=== PATIENT | female | born 1995 | race Caucasian/White ===

== ENCOUNTER 2017-12-27 17:55 | Outpatient (REF) | payer OTHER, SELFPAY ==
[2017-12-29 15:38] LABS: Chlamydia Result Negative; GC Result Negative; Specimen Description URINE
== END 2017-12-27 18:15 ==
LOC: LBN 17:55
PROVIDERS: PCP Pediatrics; Visit Provider Nurse Practitioner Family
DX: R50.9 Fever, unspecified (principal); R39.11 Hesitancy of micturition
CPT/HCPCS: 87491; 87591

== ENCOUNTER 2018-02-02 12:05 | Outpatient (REF) | payer OTHER, SELFPAY ==
[2018-02-05 15:15] LABS: Chlamydia Result Negative; GC Result Negative; Specimen Description CERVIX
== END 2018-02-02 12:25 ==
LOC: LBN 12:05
PROVIDERS: PCP Pediatrics; Visit Provider Nurse Practitioner Women's Health
DX: R10.2 Pelvic and perineal pain (principal); Z11.3 Encounter for screening for infections with a predominantly sexual mode of transmission
CPT/HCPCS: 87491; 87591

== ENCOUNTER 2018-03-26 19:32 | Emergency (ER) | payer OTHER, SELFPAY ==
[2018-03-26 19:36] VITALS: BP 170/80; PULSE 103; RESP 14; TEMP 36.5; O2SAT 100
[2018-03-26 20:01] LABS: Bilirubin Negative (Negative); Blood Negative (Negative); Clarity Clear; Glucose Negative (Negative); Ketones Negative (Negative); Leukocyte Esterase Negative (Negative); Nitrite Negative (Negative); Specific Gravity 1.025 (1.005-1.025); Urobilinogen 0.2 EU/dL (Up TO 0.2)
--- NOTE | 2018-03-26 20:28 | DI.CT_ITS ---
SYMPTOMS/DIAGNOSIS: UMBILICAL PAIN, ? APPENDICITIS CT SCAN OF THE ABDOMEN AND PELVIS: CT scan of the abdomen and pelvis was performed following the uneventful administration of intravenous contrast material. No priors. The lung bases are clear. The liver, spleen, pancreas, gallbladder, bile ducts and adrenal glands are unremarkable. The portal and superior mesenteric veins are patent. The kidneys, ureters and bladder are unremarkable. The reproductive organs are unremarkable. The bowel has a normal appearance. There is a normal appendix present. The abdominal aorta is of normal caliber. No significant abdominal or pelvic adenopathy, ascites or pneumoperitoneum is seen. No acute abnormality is seen in the bones. IMPRESSION: No acute abnormality. No evidence of an acute appendicitis.
[2018-03-26] MEDS: Normal Saline 1,000 ML 1000 ML IV (20:51)
[2018-03-26 20:55] LABS: Abs Immature Grans 0.03 k/cumm (0.0-0.09); Absolute Basophil Count 0.02 k/cumm (0.0-0.2); Absolute Eosinophil Count 0.02 k/cumm (0.0-0.7); Absolute Lymphocyte Count 3.35 k/cumm (1.2-3.4); Absolute Monocyte Count 0.63 k/cumm (0.11-0.7); Absolute Neutrophil Count 6.66 k/cumm (1.2-6.7); Basophils % 0.2; Eosinophils % 0.2; HCT 38.8 % (36.0-46.0); HGB 13.1 g/dL (12.0-15.5); Immature Grans % 0.3; Lymphocytes % 31.3; Mean Corp. HGB Concentration 33.8 g/dL (32.0-36.0); Mean Corpuscular Hemoglobin 29.2 pg (27.0-33.0); Mean Corpuscular Volume 86.6 fL (80-95); Mean Platelet Volume 9.9 fL (8.0-11.0); Monocytes % 5.9; Neutrophils % 62.1; Platelet Count 442 x1000/uL (130-400); RBC 4.48 m/cumm (4.00-5.20); RBC Distribution Width 12.6 % (11.7-14.6); White Blood Cell Count 10.71 k/cumm (4.4-10.8)
[2018-03-26] MEDS: Omnipaque 350 MG/ML 100 ML BTL IJ (21:10)
[2018-03-26 21:15] LABS: ALT 19 U/L (12-78); AST 11 U/L (15-37); Albumin 3.9 g/dL (3.4-5.0); Alkaline Phosphatase 74 U/L (46-116); Anion Gap 10.8 mmol/L (3-11); BUN 11 mg/dL (7-18); Bilirubin, Total 0.2 mg/dL (0.2-1.0); CO2 27.2 mmol/L (21.0-32.0); CREATININE 0.97 mg/dL (0.55-1.02); Calcium 9.4 mg/dL (8.5-10.1); Chloride 100 mmol/L (98-107); Glucose 120 mg/dL (70-100); Potassium 3.4 mmol/L (3.5-5.1); Sodium 138 mmol/L (136-145); Total Protein 8.2 g/dL (6.4-8.2)
--- NOTE | 2018-03-26 21:45 | DI.VRAD_ITS ---
EXAM: CT Abdomen and Pelvis With Contrast EXAM DATE/TIME: 03/26/2018 8:30 PM CLINICAL HISTORY: 22 years old, female; Pain; Abdominal pain; Localized; Lower; Patient HX: Lower abd and back pain for 1 week, blood in urine last week TECHNIQUE: Axial computed tomography images of the abdomen and pelvis with intravenous contrast. All CT scans at this facility use at least one of these dose optimization techniques: automated exposure control; mA and/or kV adjustment per patient size (includes targeted exams where dose is matched to clinical indication); or iterative reconstruction. Coronal and sagittal reformatted images were created and reviewed. CONTRAST: 87 ml of Omnipaque 350 administered intravenously. COMPARISON: US ABDOMEN PELVIS ULTRASOUND 12/18/2013 2:33 PM FINDINGS: Lower thorax: No acute findings. ABDOMEN: Liver: Normal. No mass. Gallbladder and bile ducts: Normal. No calcified stones. No ductal dilation. Pancreas: Normal. No ductal dilation. Spleen: Normal. No splenomegaly. Adrenals: Normal. No mass. Kidneys and ureters: Normal. No hydronephrosis. Stomach and bowel: Normal. No obstruction. No mucosal thickening. Appendix: Normal appendix. PELVIS: Bladder: Unremarkable as visualized. Reproductive: Unremarkable as visualized. ABDOMEN and PELVIS: Intraperitoneal space: Normal. No free air. No significant fluid collection. Bones/joints: No acute fracture. No dislocation. Soft tissues: Unremarkable. Vasculature: Normal. No abdominal aortic aneurysm. Lymph nodes: Normal. No enlarged lymph nodes. IMPRESSION: No acute findings. Dictated and Authenticated by: Ayaz Hare MD. Ordering:ROYER Morales MD
--- NOTE | 2018-03-26 22:17 | ED.GENADUL_ITS ---
Discharge Plan Disposition Patient Disposition: HOME Condition: Good Discharge Details Chief Complaint: Abd Prob Clinical Impression: Abdominal pain Reason For Visit: abd pain Primary Care Provider: Hua Gomez ED Provider: Andrew Christianson Home Meds and New Rx's Prescriptions: No Action Xulane 1 EACH patch weekly 1 ea Transdermal weekly Qty: 9 RF: 3 Discharge Instructions Instructions: Abdominal Pain (ED) Additional Instructions: Please take 600 mg of ibuprofen every 6 hours and up to 1000 mg of Tylenol every 6 hours for control of your pain. Please drink 10-12 cups of water per day for good hydration. If you notice any worsening of your symptoms, or any new symptoms such as vomiting, diarrhea, fever, chills, shortness of breath, chest pain, numbness, weakness, or fainting , please return immediately to the emergency department for reevaluation. Please follow up with your primary care provider as soon as possible for reassessment and reevaluation. As always, it was a pleasure participating in your medical care today. Referrals: Hua Gomez MD [Primary Care Provider] - Discharge Data Discharge Date/Time-TO BE ENTERED AT DEPARTURE: 03/26/18 22:24 Medical Decision Making This is a 22-year-old female with no significant past medical history who presents with complaint of mild infraumbilical abdominal pain last week, with associated mild bilateral flank pain. No apparent aggravating or relieving symptoms. Pain is described as pinching. Initial clinical history was concerning for potential urinary tract infection, less likely appendicitis. Associated benign abdominal exam. Laboratory workup demonstrated no significant abnormalities, additionally patient's urinalysis was negative for any signs of infectious etiology whatsoever. No evidence of UTI or kidney stone on the urine. Patient's signs and symptoms are clinically inconsistent with ovarian torsion, or pelvic pathology secondary to both her exam and clinical history. Although the diagnosis of appendicitis is less likely, with a negative UA and her abdominal symptoms is on the differential. I did discuss this with the patient, I discussed the risks and benefits of potential radiologic CT imaging. Patient is requesting CT imaging to rule out appendicitis. CT results did return demonstrate no acute process or signs of appendicitis. With a benign workup, pain that is very minimal at best, no signs of an acute abdomen and no clinical evidence of pelvic pathology on exam, I do feel that she is safe for discharge home with close follow-up. I discussed the importance of close follow-up, as well as red flags for which to return the patient understands, as well as the importance of Tylenol and Motrin for pain control and good hydration. I do feel her symptoms may be secondary to a mild musculoskeletal component, or subclinical mesenteric adenitis not found on CT scan. I have extensively reviewed the treatment plan and discharge instructions with the patient and their family. I have addressed all patient concerns at this time. The patient and family was made aware of what symptoms to monitor for that would warrant a return to the emergency department. Discussed the plan with the patient and family, they demonstrate verbal understanding and agreement with our assessment and plan at this time. FINDINGS: Lower thorax: No acute findings. ABDOMEN: Liver: Normal. No mass. Gallbladder and bile ducts: Normal. No calcified stones. No ductal dilation. Pancreas: Normal. No ductal dilation. Spleen: Normal. No splenomegaly. Adrenals: Normal. No mass. Kidneys and ureters: Normal. No hydronephrosis. Stomach and bowel: Normal. No obstruction. No mucosal thickening. Appendix: Normal appendix. PELVIS: Bladder: Unremarkable as visualized. Reproductive: Unremarkable as visualized. ABDOMEN and PELVIS: Intraperitoneal space: Normal. No free air. No significant fluid collection. Bones/joints: No acute fracture. No dislocation. Soft tissues: Unremarkable. Vasculature: Normal. No abdominal aortic aneurysm. Lymph nodes: Normal. No enlarged lymph nodes. IMPRESSION: No acute findings. Dictated and Authenticated by: Ayaz Hare MD. HPI General Date/Time Provider Initiated Documentation: 03/26/18 19:45 . HPI Narrative: This is a 22-year-old female who presents for evaluation of lower back and abdominal pain. Patient states that for the last week she has had very mild umbilical pain, in conjunction with mild bilateral flank pain. She describes it as pinching sensation it is worse with movement, improved by nothing. She has been eating, drinking well with no associated vomiting or diarrhea. Symptoms are not made worse with food. She does have some mild increase in urinary frequency but denies any dysuria, hematochezia, melena, or acholic stool. She does admit to seeing a very small amount of blood in her urine 4-5 days ago but nothing since then. She denies any vaginal discharge, pelvic pain, history of STDs, or dyspareunia. She has no additional complaints or modifying factors at this time. She denies any systemic symptoms of fever or chills. She denies any surgeries. She denies any IV illicit drug use, or pertinent family history. She denies any history of kidney stones. Related Data Home Medications Medication Instructions Recorded Confirmed norelgestromin-ethin.estradiol 1 ea TRANSDERMAL weekly #9 patch 08/01/17 03/26/18 [Xulane Patch] Previous Rx's Medication Instructions Recorded norelgestromin-ethin.estradiol 1 ea TRANSDERMAL weekly #9 patch 08/01/17 [Xulane Patch] Allergies Allergy/AdvReac Type Severity Reaction Status Date / Time amoxicillin Allergy Intermediate RASH Unverified 03/26/18 19:40 Penicillins Allergy Intermediate RASH Unverified 03/26/18 19:40 General Stated Complaint: Abd Prob CHUCK: 3 Review of Systems Review of Systems All systems reviewed & are unremarkable except as noted in HPI and below PFSH Social History Smoking/Tobacco Use Status: Never Exam Narrative Exam Narrative: 1.Const: Well-nourished, Well-developed, appearing stated age 2.Eyes: PERRL, no conjunctival injection, and symmetrical lids. 3.ENT: Atraumatic external nose and ears. Moist MM. Neck: Symmetric, trachea midline, No thyromegaly. 4.CVS: +S1/S2, No murmurs or gallops. Peripheral pulses 2+ and equal in all extremities. Brisk capillary refill in all extremities. 5.RESP: Unlabored respiratory effort. Clear to auscultation bilaterally. No wheezes rales or rhonchi 6.GI: Soft, Nontender/Nondistended, No hepatosplenomegaly. No guarding or rebound. Minimal subjective tenderness in the infraumbilical region. No pain a t McBurney's point, negative Rovsing sign, negative obturator and psoas sign. Minimal right and left CVA tenderness with percussion. No signs of an acute surgical abdomen. 7.MSK: Normocephalic/Atraumatic, Extremities w/o deformity or ttp No cyanosis or clubbing, Normal movement of all extremities 8.Skin: Warm, Dry. No rashes or lesions. 9.Neuro: preload supervisor II-XII grossly intact. Sensation grossly intact, no focal neurologic deficits. 10.Psych: (AAO) x3. Appropriate mood and affect Course Vital Signs Temperature 36.5 C 03/26/18 19:36 Pulse 103 H 03/26/18 19:36 Respiratory Rate 14 03/26/18 19:36 Blood Pressure 170/80 H 03/26/18 19:36 Pulse Oximetry 100 03/26/18 19:36 Temperature 36.5 C 03/26/18 19:36 Temperature Source Temporal Artery Scan 03/26/18 19:36 Pulse 103 H 03/26/18 19:36 Respiratory Rate 14 03/26/18 19:36 Respiratory Effort 03/26/18 19:39 Blood Pressure 170/80 H 03/26/18 19:36 Blood Pressure Position Sitting 03/26/18 19:36 Pulse Oximetry 100 03/26/18 19:36 Oxygen Delivery Method Room Air 03/26/18 19:36 Oxygen Flow Rate 0 03/26/18 19:36 Lab/Test Results Lab/Test Results: Laboratory Tests Range/Units 03/26/18 03/26/18 03/26/18 19:45 19:45 19:45 WBC (4.4-10.8) k/cumm 10.71 RBC (4.00-5.20) m/cumm 4.48 Hgb (12.0-15.5) g/dL 13.1 Hct (36.0-46.0) % 38.8 MCV (80-95) fL 86.6 MCH (27.0-33.0) pg 29.2 MCHC (32.0-36.0) g/dL 33.8 RDW (11.7-14.6) % 12.6 Plt Count (130-400) x1000/uL 442 H MPV (8.0-11.0) fL 9.9 Immature Gran % 0.3 Neutrophils % 62.1 Lymphocytes % 31.3 Monocytes % 5.9 Eosinophils % 0.2 Basophils % 0.2 Absolute Neutrophils (1.2-6.7) k/cumm 6.66 Absolute Lymphocytes (1.2-3.4) k/cumm 3.35 Absolute Monocytes (0.11-0.7) k/cumm 0.63 Absolute Eosinophils (0.0-0.7) k/cumm 0.02 Absolute Basophils (0.0-0.2) k/cumm 0.02 Sodium (136-145) mmol/L 138 Potassium (3.5-5.1) mmol/L 3.4 L Chloride (98-107) mmol/L 100 Carbon Dioxide (21.0-32.0) mmol/L 27.2 Anion Gap (3-11) mmol/L 10.8 BUN (7-18) mg/dL 11 Creatinine (0.55-1.02) mg/dL 0.97 Estimated GFR/1.73 m2 (mL/min/1.73m2) >= 60.00 Glucose (70-100) mg/dL 120 H Calcium (8.5-10.1) mg/dL 9.4 Total Bilirubin (0.2-1.0) mg/dL 0.2 AST (15-37) U/L 11 L ALT (12-78) U/L 19 Alkaline Phosphatase (46-116) U/L 74 Total Protein (6.4-8.2) g/dL 8.2 Albumin (3.4-5.0) g/dL 3.9 Urine Color (Yellow) Yellow Urine Clarity Clear Urine pH (5-8) 7.0 Ur Specific [place] (1.005-1.025) 1.025 Urine Protein (Negative) mg/dL Negative Urine Ketones (Negative) mg/dL Negative Urine Blood (Negative) Negative Urine Nitrite (Negative) Negative Urine Bilirubin (Negative) Negative Urine Urobilinogen (Up TO 0.2) EU/dL 0.2 Ur Leukocyte Esterase (Negative) Negative Urine Glucose (Negative) mg/dL Negative POC- Test(urine) Negative
[2018-03-26 22:21] VITALS: BP 128/74; PULSE 91; RESP 14; TEMP 36.5; O2SAT 99
== END 2018-03-26 22:24 | disposition home or self-care (01) ==
PROVIDERS: Emergency Provider Student in an Organized Health Care Education/Training Program; PCP Pediatrics
DX: R10.9 Unspecified abdominal pain (principal)
CPT/HCPCS: 36415; 80053; 81025; 96360; 99285; 74177; 81003; 85025; 99284; J3490

== ENCOUNTER 2018-05-14 12:21 | Emergency (ER) | payer OTHER, SELFPAY ==
--- NOTE | 2018-05-14 12:26 | W.ED.GENAD ---
Discharge Plan Disposition Patient Disposition: HOME Condition: Stable Discharge Details Chief Complaint: EarProblem Clinical Impression: Left ear pain, Fluid level behind tympanic membrane of left ear Primary Care Provider: Hua Gomez ED Provider: Kary Olson Home Meds and New Rx's Prescriptions: New methylprednisolone [Medrol (Preet)] 4 mg tablets,dose pack See Rx Instructions .ROUTE .COMPLEX Qty: 21 RF: 0 azithromycin [Zithromax Z-Preet] 250 mg tablet See Rx Instructions .ROUTE .COMPLEX Qty: 6 RF: 0 Continued Xulane 1 EACH patch weekly 1 ea Transdermal weekly Qty: 9 RF: 3 Discharge Instructions Instructions: Otitis Media (ED), Earache (ED) Additional Instructions: You were given instructions for otitis media which is an ear infection. This may be viral or bacterial. You are noted to have some fluid in your left ear but this may not be an ear infection at this time. Take the steroids as directed until finished. If you have no relief or worsening of symptoms in the next 2 days, start the antibiotics for a possible ear infection. Follow-up with your primary care doctor in 1 week for reevaluation. Return immediately to the emergency department any worsening or new concerning symptoms. Discharge Data Discharge Date/Time-TO BE ENTERED AT DEPARTURE: 05/14/18 12:58 Discharge Physician: Kary Olson Medical Decision Making 22 yo F w/ L ear pain and decreased hearing x 2 days. No cerumen impaction. Vitals within normal limits. Yellowish fluid noted behind L TM. R TM appears normal to inspection. Remainder of ENT exam within normal limits. Lungs CTA. No meningeal signs. Pt appears nontoxic. test negative. Will send home with a script for steroids to help with ear inflammation/fluid accumulation. Will also send home with a script for antibiotics if symptoms do not improve or worsen as may initially be viral but progress to bacterial infection. Instructed to f/u with pcp in 1 week re-evaluation and return to the ER if worse. HPI General Mode of arrival: ambulatory. Date/Time Provider Initiated Documentation: 05/14/18 12:24. Limitations to Documentation: no limitations. Information obtained by: patient. HPI Narrative: Pt is a 22yo F who presents to the ED w/ a c/o decreased hearing and pain in her left ear for the past 2 days. She admits to some headache and neck pain surrounding L ear but not diffuse neck pain or headache. She denies known fever, rhinorrhea, cough or drainage from ear. Related Data Home Medications Medication Instructions Recorded Confirmed Xulane 1 ea TRANSDERMAL weekly #9 patch 08/01/17 05/14/18 azithromycin [Zithromax Z-Preet] See Rx Instructions .ROUTE 05/14/18 .COMPLEX #6 tab methylprednisolone [Medrol (Preet)] See Rx Instructions .ROUTE 05/14/18 .COMPLEX #21 dose pk Previous Rx's Medication Instructions Recorded Xulane 1 ea TRANSDERMAL weekly #9 patch 08/01/17 azithromycin [Zithromax Z-Preet] See Rx Instructions .ROUTE 05/14/18 .COMPLEX #6 tab methylprednisolone [Medrol (Preet)] See Rx Instructions .ROUTE 05/14/18 .COMPLEX #21 dose pk Allergies Allergy/AdvReac Type Severity Reaction Status Date / Time amoxicillin Allergy Intermediate RASH Unverified 05/14/18 12:30 Penicillins Allergy Intermediate RASH Unverified 05/14/18 12:30 General CHUCK: 3 Review of Systems Review of Systems All systems reviewed & are unremarkable except as noted in HPI and below Constitutional Reports as per HPI, Denies chills and Denies fever(s) Eyes Denies blurry vision ENT Denies dizziness, Denies ear discharge, Reports otalgia, Reports hearing loss, Denies nasal congestion, Denies nasal discharge, Denies sore throat and Denies throat swelling Cardiovascular Denies chest pain and Denies dyspnea Respiratory Denies cough and Denies dyspnea Gastrointestinal Denies abdominal pain, Denies diarrhea and Denies vomiting Genitourinary Denies hematuria and Denies dysuria Musculoskeletal Denies back pain and Denies numbness Integumentary/Breasts Denies lesions and Denies rash Neurologic Denies dizziness, Denies focal weakness and Denies numbness Allergic/Immunologic Denies throat swelling [facility] Medical History No significant past medical history (Acute) Surgical History No significant past surgical history (Acute) Family History Mother No problems noted. Father No problems noted. Social History Smoking and Tabacco status: Never alcohol intake: never substance use type: does not use Exam Const General: cooperative and healthy appearing Orientation: alert and awake [facility] Head: normal to inspection Ears: hearing grossly normal bilaterally, external ears normal and TM abnormal with fluid behind the TM on the left (yellowish) and other (R TM normal to inspection); not bulging, not dull, not erythematous and not perforated General nose exam: external nose normal Face and sinus: normal facial exam Mouth: oral mucosae normal Teeth and gingiva: dentition normal Throat: posterior oropharynx normal Eyes General: appearance normal, both eyes and all related structures Eyelids: eyelids normal Pupils: PERRL EOM: EOM intact bilaterally Neck Neck: normal visual inspection Lymphatic: no lymphadenopathy noted Chest Chest: normal inspection of the chest Resp Effort & Inspection: normal respiratory effort and able to speak in complete sentences Auscultation: clear to auscultation bilaterally Cardio Rate: regular rate Rhythm: regular rhythm GI Inspection: normal to inspection Skin General skin exam: no rashes or lesions noted Neuro General: alert and awake Cognition: normal cognition Speech: speech normal Gait: normal gait Motor: muscle tone normal throughout Sensory Exam: no sensory deficits noted Extrem General: normal to inspection Psych Appearance: grossly normal Mental Status: mental status grossly normal Speech and Movement: speech and movement normal Affect: normal affect Thought Process: normal
[2018-05-14 12:27] VITALS: BP 137/76; PULSE 75; RESP 14; TEMP 36.7; O2SAT 100
== END 2018-05-14 12:58 | disposition home or self-care (01) ==
PROVIDERS: Emergency Provider Physician Assistant; PCP Pediatrics
DX: H92.02 Otalgia, left ear (principal); H73.892 Other specified disorders of tympanic membrane, left ear
CPT/HCPCS: 99283

== ENCOUNTER 2019-01-30 15:31 | Emergency (ER) | payer OTHER, SELFPAY ==
[2019-01-30 15:39] VITALS: BP 147/89; PULSE 86; RESP 17; TEMP 37; O2SAT 100
--- NOTE | 2019-01-30 16:14 | W.ED.GENAD ---
Discharge Plan Disposition Patient Disposition: HOME Condition: Fair Discharge Details Chief Complaint: Dizzy/Sync Clinical Impression: Dizziness, Nausea & vomiting Primary Care Provider: Hua Gomez ED Provider: Casie Rome Home Meds and New Rx's Prescriptions: New ondansetron 4 mg tablet,disintegrating 4 mg PO Q6H PRN (Reason: nausea and vomiting) Qty: 10 RF: 0 Continued Xulane 150-35 mcg/24 hr patch weekly 1 patch Transdermal weekly Qty: 9 RF: 5 Discharge Instructions Instructions: Acute Nausea and Vomiting (ED) Additional Instructions: Labs and imaging are reassuring today. Encourage hydration. May use Zofran as prescribed to help with any recurrence of your nausea or vomiting. Develop fever/chills, severe headache, inability stay hydrated, chest pain, shortness of breath or other new/worsening symptoms please seek care urgently once again. Otherwise, please follow-up with primary care this week for reevaluation. Please do not drive while the symptoms persist. Stand Alone Forms: Work Release Referrals: Hua Gomez MD [Primary Care Provider] - Discharge Data Discharge Date/Time-TO BE ENTERED AT DEPARTURE: 01/30/19 19:15 Medical Decision Making Patient is a 23-year-old otherwise healthy female presented today with chief complaint of dizziness for the past week. States that while she is had some degree of low-level symptoms consistently for the past week, her severe dizziness has been intermittently and nonreproducible. Is not noted any exertional component to this. Does not feel that it is positional. Denies any fevers or chills. Denies headache. States that when symptoms exacerbate, she can have nausea and vomiting. Is only vomited x1. No recent travel. States that she has been hydrating. Denies any change in bowel or bladder habits. No exam, patient appears nontoxic. Neuro exam is intact. No nystagmus is noted. Patient slightly hypertensive with blood pressure 147/89, vital signs are otherwise stable. She does appear slightly dry on exam. EKG reviewed by Dr. Vega. Patient's normal sinus rhythm with a rate of 78 with no acute ischemic changes abnormalities noted. I did consider the possibility of a pulmonary embolism but findings and history are highly unlikely as the patient is not endorsing any chest pain, shortness of breath, exertional symptoms, no unilateral leg swelling, no calf tenderness, VS reassuring. No personal or familial history of clot. Patient is feeling improved after p.o. meclizine and ODT Zofran. Labs reviewed and no significant normality was noted. Reassessed the patient. She is no longer having symptoms. However, she seems very anxious and upset regarding her symptoms that she is been having for the past week. And completing a thorough exam and ruling out any mass that may be causing symptoms, plan to obtain a noncontrast head CT. Discussed risk/benefits of this testing with the patient and her family depth and they agreed with this plan. FINDINGS: Brain: Unremarkable. No intracranial hemorrhage. Unremarkable white matter. No mass effect. Ventricles: Unremarkable. No ventriculomegaly. Bones/joints: Unremarkable. No acute fracture. Sinuses: Visualized sinuses are unremarkable. No fluid levels. Mastoid air cells: Visualized mastoid air cells are well aerated. Soft tissues: Unremarkable. IMPRESSION: No acute intracranial abnormality. Discussed these findings with the patient and her family. Patient is now reporting that she was not actually able to take the meclizine she feels. However, the Zofran did not improve her symptoms and she remains asymptomatic. She had a 10-minute headache while here but otherwise well. Advised this may be viral etiology. Encourage prompt follow-up with primary care this week for reevaluation. She does live with her significant other, I did advise that while she continues to have these intermittent feelings of lightheadedness she should not be driving. She was given strict return precautions. All questions and concerns were addressed, she is in agreement with this plan. HPI General Mode of arrival: ambulatory. Date/Time Provider Initiated Documentation: 01/30/19 15:47. Limitations to Documentation: no limitations. Information obtained by: patient and family (aunt). HPI Narrative: Patient is a 23-year-old female, otherwise healthy with no past medical history, presenting today with chief complaint of 1 week of dizzy. Describes his dizziness as the room spinning and feeling lightheaded. Is also had associated nausea. States this is intermittent and not reproducible. Does not find that this is movement derived. States that today, while at work, she had a worsening onset of symptoms and describes things going black. States that my vision was gone for 5 minutes. Did not lose any postural tone. Was able to stay in a seated position during this episode and symptoms spontaneously resolved. She denies any headache. No fevers or chills. No shortness of breath. No chest pain. Denies any dysuria, hematuria. No change in bowel habits. LMP 3 weeks ago. Patient is sexually active. Has been using her transdermal contraceptive. Related Data Home Medications Medication Instructions Recorded Confirmed norelgestromin 150 mcg-e.estradiol 1 patch TRANSDERMAL weekly #9 patch 08/01/18 01/30/19 35 mcg/24 hr weekly transderm patch ondansetron 4 mg PO Q6H PRN #10 tab 01/30/19 Previous Rx's Medication Instructions Recorded norelgestromin 150 mcg-e.estradiol 1 patch TRANSDERMAL weekly #9 patch 08/01/18 35 mcg/24 hr weekly transderm patch ondansetron 4 mg PO Q6H PRN #10 tab 01/30/19 Allergies Allergy/AdvReac Type Severity Reaction Status Date / Time amoxicillin Allergy Intermediate RASH Unverified 01/30/19 15:43 Penicillins Allergy Intermediate RASH Unverified 01/30/19 15:43 General Stated Complaint: Dizzy/Sync CHUCK: 3 Review of Systems Constitutional Constitutional: Reports as per HPI, Denies chills, Reports fatigue, Denies fever(s), Denies frequent falls, Reports headache(s), Denies snoring and Denies weakness Eyes Eyes: Reports as per HPI, Denies blurry vision, Denies change in vision and Reports photophobia ENT Ears, Nose, Mouth, and Throat: Denies vertigo, Reports headache(s) and Denies neck pain Cardiovascular Cardiovascular: Reports as per HPI, Denies chest pain, Denies lightheadedness, Denies radiating jaw, neck or arm pain, Denies dyspnea and Denies dyspnea on exertion Respiratory Respiratory: Reports as per HPI, Denies chest congestion, Denies cough, Denies dyspnea, Denies dyspnea on exertion, Denies snoring, Denies stridor and Denies wheezing Gastrointestinal Gastrointestinal: Reports as per HPI, Denies abdominal pain, Denies change in bowel habits, Denies nausea and Denies vomiting Musculoskeletal Musculoskeletal: Reports as per HPI, Denies back pain, Denies myalgias, Denies muscle cramps, Denies neck pain and Denies numbness Integumentary/Breasts Skin/Breast: Reports as per HPI and Denies rash Neurologic Neurologic: Reports as per HPI, Denies abnormal movements, Denies abnormal speech, Denies behavioral changes, Denies confusion, Denies vertigo, Denies frequent falls, Reports headache(s), Denies focal weakness, Denies numbness, Denies sensory deficit and Denies weakness Psychiatric Psychiatric: Denies behavioral changes and Denies confusion Endocrine Endocrine: Reports fatigue Allergic/Immunologic Allergic/Immunologic: Denies wheezing [facility] Social History Smoking/Tobacco Use Status: Never Alcohol Intake: never Drug use: Never Substance use type: does not use Do you feel safe in your relationship?: Yes Female Reproductive History Menstrual Age of Menarche: 14 control method: patch History History 0 Para Hx # Term Pregnancies Multiple births Hx # Pregnancies Ectopic pregnancies AB induced Hx Number of Living Children AB spontaneous Exam Const General: cooperative, healthy appearing, uncomfortable, no acute distress, well developed and well groomed Nutritional Appearance: average body habitus and well nourished Orientation: alert, awake and oriented x3 HENMT Head: normal to inspection, no palpable skull fracture, normocephalic and atraumatic Ears: hearing grossly normal bilaterally, external ears normal and TM's normal bilaterally General nose exam: external nose normal Mouth: oral mucosae normal and moist mucous membranes Throat: posterior oropharynx normal Eyes General: appearance normal, both eyes and all related structures Alignment and Position: alignment normal Periorbital: periorbital findings normal Eyelids: eyelids normal Sclera: sclerae normal Cornea: corneas normal Pupils: PERRL EOM: EOM intact bilaterally Neck Neck: normal visual inspection, full ROM, no lymphadenopathy and no meningeal signs Resp Effort & Inspection: normal respiratory effort, able to speak in complete sentences and no respiratory distress Auscultation: clear to auscultation bilaterally, no rales, no rhonchi and no wheezes Cardio Rate: regular rate Rhythm: regular rhythm Heart Sounds: S1 normal and S2 normal GI Inspection: normal to inspection and non-distended Palpation: soft, no hepatosplenomegaly, not firm, no guarding, not rigid and nontender Percussion: normal to percussion Auscultation: normal bowel sounds Back/Spine/Pelvis Cervical Spine: normal cervical lordosis and cervical ROM normal Skin General skin exam: no rashes or lesions noted Neuro General: alert, awake and oriented x3 Cranial Nerves: CN's II-XI intact bilaterally Cognition: normal cognition Speech: speech normal Gait: normal gait Motor: muscle tone normal throughout, strength 5/5 throughout, no pronator drift, no movement abnormalities noted and no fasciculations Sensory Exam: no sensory deficits noted Coordination: [id number] test normal and cfwi-[id number] test normal Extrem General: normal to inspection, normal capillary refill, no pedal edema and no calf tenderness Psych Appearance: grossly normal and well kempt Mental Status: mental status grossly normal Speech and Movement: speech and movement normal Course Vital Signs Vital signs: Vital Signs Temperature 37 C 01/30/19 15:39 Pulse 86 01/30/19 15:39 Respiratory Rate 17 01/30/19 15:39 Blood Pressure 147/89 H 01/30/19 15:39 Pulse Oximetry 100 01/30/19 15:39 Temperature 37 C 01/30/19 15:39 Pulse 86 01/30/19 15:39 Respiratory Rate 17 01/30/19 15:39 Blood Pressure 147/89 H 01/30/19 15:39 Pulse Oximetry 100 01/30/19 15:39 Oxygen Delivery Method Room Air 01/30/19 15:39 Oxygen Flow Rate 0 01/30/19 15:39 Pain Level 0 01/30/19 15:39
[2019-01-30] MEDS: Normal Saline 1,000 ML 1000 ML IV (16:46)
[2019-01-30] MEDS: Ondansetron O.D.T. 4 MG TABEF PO (16:46)
[2019-01-30 17:00] LABS: Abs Immature Grans 0.01 k/cumm (0.0-0.09); Absolute Basophil Count 0.03 k/cumm (0.0-0.2); Absolute Eosinophil Count 0.04 k/cumm (0.0-0.7); Absolute Lymphocyte Count 2.37 k/cumm (1.2-3.4); Absolute Monocyte Count 0.49 k/cumm (0.11-0.7); Absolute Neutrophil Count 2.55 k/cumm (1.2-6.7); Basophils % 0.5; Eosinophils % 0.7; HCT 38.2 % (36.0-46.0); Immature Grans % 0.2; Lymphocytes % 43.2; Mean Corpuscular Volume 85.3 fL (80-95); Mean Platelet Volume 9.9 fL (8.0-11.0); Monocytes % 8.9; Neutrophils % 46.5; Platelet Count 355 x1000/uL (130-400); RBC 4.48 m/cumm (4.00-5.20); RBC Distribution Width 12.2 % (11.7-14.6); White Blood Cell Count 5.49 k/cumm (4.4-10.8)
[2019-01-30 17:28] LABS: Bilirubin Negative (Negative); Blood Negative (Negative); Clarity Clear (Clear); Glucose Negative (Negative); Ketones Negative (Negative); Leukocyte Esterase Negative (Negative); Nitrite Negative (Negative); Specific Gravity 1.015 (1.005-1.025); Urobilinogen 0.2 EU/dL (Up TO 0.2); pH 7.5 (5-8)
[2019-01-30 17:34] LABS: HCG Qual (Serum) Negative
[2019-01-30 17:39] LABS: ALT 20 U/L (14-59); AST 14 U/L (15-37); Alkaline Phosphatase 51 U/L (46-116); Anion Gap 8.1 mmol/L (3-11); BUN 7 mg/dL (7-18); Bilirubin, Total 0.2 mg/dL (0.2-1.0); CO2 26.9 mmol/L (21.0-32.0); CREATININE 0.69 mg/dL (0.55-1.02); Calcium 8.9 mg/dL (8.5-10.1); Chloride 104 mmol/L (98-107); Glucose 90 mg/dL (70-100); Magnesium 2.1 mg/dL (1.8-2.4); Potassium 3.6 mmol/L (3.5-5.1); Sodium 139 mmol/L (136-145); TSH 1.75 uIU/mL (0.36-3.74); Total Protein 7.5 g/dL (6.4-8.2)
--- NOTE | 2019-01-30 17:59 | DI.CT_ITS ---
EXAM: CT HEAD WO CLINICAL HISTORY: lightheaded, dizzy, visual changes TECHNIQUE: Noncontrast COMPARISON: No exams were available for comparison FINDINGS: No intracranial hemorrhage or skull fracture is seen. Ventricles are normal in size. No mass or in farct is seen. The sinuses and mastoid air cells appear clear where visualized. IMPRESSION: Negative head CT.
--- NOTE | 2019-01-30 18:52 | DI.VRAD_ITS ---
PROCEDURE INFORMATION: Exam: CT Head Without Contrast Exam date and time: 01/30/2019 6:28 PM Clinical history: 23 years old, female; Pain; Other: [place] TECHNIQUE: Imaging protocol: Computed tomography of the head without contrast. Radiation optimization: All CT scans at this facility use at least one of these dose optimization techniques: automated exposure control; mA and/or kV adjustment per patient size (includes targeted exams where dose is matched to clinical indication); or iterative reconstruction. COMPARISON: No relevant prior studies available. FINDINGS: Brain: Unremarkable. No intracranial hemorrhage. Unremarkable white matter. No mass effect. Ventricles: Unremarkable. No ventriculomegaly. Bones/joints: Unremarkable. No acute fracture. Sinuses: Visualized sinuses are unremarkable. No fluid levels. Mastoid air cells: Visualized mastoid air cells are well aerated. Soft tissues: Unremarkable. IMPRESSION: No acute intracranial abnormality. Dictated and Authenticated by: Mildred Kelly MD. Ordering:TRICE Jason MD
[2019-01-30 19:06] VITALS: BP 140/80; PULSE 78; RESP 16; TEMP 37.4; O2SAT 100
== END 2019-01-30 19:15 | disposition home or self-care (01) ==
PROVIDERS: Emergency Provider Physician Assistant; PCP Pediatrics
DX: R42 Dizziness and giddiness (principal); R11.2 Nausea with vomiting, unspecified
CPT/HCPCS: 36415; 80053; 93005; 96360; 99285; 70450; 81003; 83735; 84443; 84703; 85025; 93010

== ENCOUNTER 2019-04-24 17:50 | Outpatient (REF) | payer OTHER, SELFPAY ==
[2019-04-24 20:10] LABS: HCG Qual (Serum) Negative
[2019-04-24 20:11] LABS: ALT 16 U/L (14-59); AST 14 U/L (15-37); Alkaline Phosphatase 48 U/L (46-116); Amylase 77 U/L (25-115); Bilirubin, Direct 0.09 mg/dL (0.00-0.20); Bilirubin, Total 0.3 mg/dL (0.2-1.0); Lipase 143 U/L (73-393)
[2019-04-26 13:02] LABS: IgA 177 mg/dL (85-499); Tissue Transglutaminase IgA <1.2 U/mL (<4.0)
== END 2019-04-24 18:10 ==
LOC: NCHCN 17:50
PROVIDERS: PCP Family Medicine; Visit Provider Family Medicine
DX: R11.0 Nausea (principal)
CPT/HCPCS: 80076; 82784; 83516; 83690; 82150; 84703

== ENCOUNTER 2019-08-05 00:51 | Emergency (ER) | payer OTHER, SELFPAY ==
[2019-08-05 00:56] VITALS: BP 140/93; PULSE 97; RESP 16; TEMP 36.7; O2SAT 100
[2019-08-05 01:07] VITALS: RESP 16
--- NOTE | 2019-08-05 01:08 | ED.GENADUL_ITS ---
Discharge Plan Disposition Patient Disposition: HOME Condition: Stable Discharge Details Chief Complaint: GenMedical Clinical Impression: Arm numbness left, Headache Primary Care Provider: Gracie Horn ED Provider: Viraj Fitzpatrick Home Meds and New Rx's Prescriptions: Continued Xulane 150-35 mcg/24 hr patch weekly 1 patch Transdermal weekly Qty: 9 RF: 5 ondansetron 4 mg tablet,disintegrating 4 mg PO Q6H PRN (Reason: nausea and vomiting) Qty: 10 RF: 0 Discharge Instructions Instructions: Paresthesia (ED) Additional Instructions: your blood work and cat scan of the head were normal follow up with your primary care provider within 1 week if you have severe worsening pain, weakness, slurred speech or vision changes return to the emergency department Medical Decision Making 23 yo female who has history of migraines comes in with feeling of heaviness in the left arm that started an hour ago. She states she was getting ready for bed feeling well when she felt her left arm was numb and weak and had a head pain and fogginess, and noted weakness in both legs as well that has resolved. She states it feels like her arm is heavy and she can't stop moving it and intermittently shakes her left arm. She denies any chest pain/pressure, dyspnea, fevers. Head pain is not the worst of her life. She has a normal gait on exam and on exam has no focal motor or sensation deficits and strong radial and ulnar pulses. Her NIH scale is 0. I suspect her symptoms are due to complex migraine and possible that this could be neuropathy vs MS though she denies any known prior neurological episodes. Given the head pain will image to evaluate for possible dissection and monitor. Her NIH is 0 so do not suspect cva at this time, has 5/5 strenth in all extremities, no drift, CN II-XII intact. Another potential cause is thoracic outlet syndrome or brachial plexus injury pt's numbness sensation has rseolved after CT, still has some fogginess and discomfort in the head. Labs unremarkable, imaging results pending pt now asymptomatic and labs and imaging results unremarkable. Discussed with patient potential etiologies of neuropathy, MS, complex migraine and thoracic outlet syndrome. Shewas advised to f/u with pcp within a week and return precautions given Differential Diagnosis Differential Diagnosis: complex migraine, MS, neuropathy, cva Medical Records Medical records reviewed: Yes I reviewed the patient's medical records. Lab Data Lab results reviewed: Yes I reviewed the patient's lab results. ECG Data Attestation: I personally reviewed and interpreted this ECG (s) as follows: Prior ECG tracings: not available for review Interpretation: sinus rhythm, rate of 77, pr 144, qtc 435 HPI General Mode of arrival: ambulatory . Date/Time Provider Initiated Documentation: 08/05/19 00:52 . Limitations to Documentation: no limitations . Information obtained by: patient . History of Present Illness 23 year old F presents to the emergency department with the chief complaint of left arm numbness/heaviness, described as moderate, Patient reports no radiation. Patient started experiencing this hour(s) (1) and it has been constant. No relieving factors improve symptom(s), No exacerbating factors reported . Patient did receive the following treatments prior to arrival, none Related Data Home Medications Medication Instructions Recorded Confirmed norelgestromin 150 mcg-e.estradiol 1 patch TRANSDERMAL weekly #9 patch 08/01/18 01/30/19 35 mcg/24 hr weekly transderm patch ondansetron 4 mg PO Q6H PRN #10 tab 01/30/19 Previous Rx's Medication Instructions Recorded norelgestromin 150 mcg-e.estradiol 1 patch TRANSDERMAL weekly #9 patch 08/01/18 35 mcg/24 hr weekly transderm patch ondansetron 4 mg PO Q6H PRN #10 tab 01/30/19 Allergies Allergy/AdvReac Type Severity Reaction Status Date / Time amoxicillin Allergy Intermediate RASH Unverified 08/05/19 01:16 Penicillins Allergy Intermediate RASH Unverified 08/05/19 01:16 General Stated Complaint: GenMedical CHUCK: 3 Review of Systems All systems reviewed & are unremarkable except as noted in HPI and below Constitutional Constitutional: Denies chills, Denies fever(s) and Denies weakness Cardiovascular Cardiovascular: Denies chest pain and Denies dyspnea Respiratory Respiratory: Denies cough and Denies dyspnea Gastrointestinal Gastrointestinal: Denies abdominal pain, Denies nausea and Denies vomiting Musculoskeletal Musculoskeletal: Denies joint swelling Neurologic Neurologic: Denies weakness Psychiatric Psychiatric: Denies depression [facility] Social History Smoking/Tobacco Use Status: Never Alcohol Intake: never Drug use: Never Substance use type: does not use Do you feel safe at home: Yes Do you feel safe in your relationship?: Yes Female Reproductive History Menstrual Age of Menarche: 14 control method: patch History History 0 Para Hx # Term Pregnancies Multiple births Hx # Pregnancies Ectopic pregnancies AB induced Hx Number of Living Children AB spontaneous Exam Const General: no acute distress Orientation: alert HENMT Head: normal to inspection Ears: external ears normal General nose exam: external nose normal Mouth: moist mucous membranes Eyes General: appearance normal, both eyes and all related structures Neck Neck: normal visual inspection Resp Effort & Inspection: normal respiratory effort and able to speak in complete sentences Cardio Rate: regular rate Skin General skin exam: no rashes or lesions noted Neuro General: patient alert and patient oriented x3 Extrem General: normal to inspection Psych Mental Status: mental status grossly normal Course Vital Signs Vital signs: Vital Signs Temperature 36.7 C 08/05/19 00:56 Pulse 97 H 08/05/19 00:56 Respiratory Rate 16 08/05/19 00:56 Blood Pressure 140/93 H 08/05/19 00:56 Pulse Oximetry 100 08/05/19 00:56 Temperature 36.7 C 08/05/19 00:56 Temperature Source Temporal Artery Scan 08/05/19 00:56 Pulse 97 H 08/05/19 00:56 Respiratory Rate 16 08/05/19 00:56 Respiratory Effort 08/05/19 01:06 Blood Pressure 140/93 H 08/05/19 00:56 Blood Pressure Position Sitting 08/05/19 00:56 Pulse Oximetry 100 08/05/19 00:56 Pain Level 0 08/05/19 00:56
[2019-08-05] MEDS: Prochlorperazine 10 MG/2 ML VIAL IVP (01:13)
[2019-08-05 01:24] LABS: Abs Immature Grans 0.01 k/cumm (0.0-0.09); Absolute Basophil Count 0.02 k/cumm (0.0-0.2); Absolute Eosinophil Count 0.06 k/cumm (0.0-0.7); Absolute Lymphocyte Count 3.47 k/cumm (1.2-3.4); Absolute Neutrophil Count 3.97 k/cumm (1.2-6.7); Basophils % 0.2; Eosinophils % 0.7; HCT 36.1 % (36.0-46.0); HGB 12.6 g/dL (12.0-15.5); Immature Grans % 0.1 %; Lymphocytes % 42.7; Mean Corp. HGB Concentration 34.9 g/dL (32.0-36.0); Mean Corpuscular Hemoglobin 29.6 pg (27.0-33.0); Mean Corpuscular Volume 84.9 fL (80-95); Monocytes % 7.4; Neutrophils % 48.9; Platelet Count 369 x1000/uL (130-400); RBC 4.25 m/cumm (4.00-5.20); RBC Distribution Width 12.3 % (11.7-14.6); White Blood Cell Count 8.13 k/cumm (4.4-10.8)
[2019-08-05 01:34] LABS: Creatine Kinase 72 U/L (26-192); Magnesium 1.8 mg/dL (1.8-2.4)
--- NOTE | 2019-08-05 01:35 | DI.CT_ITS ---
EXAM: CT BRAIN NECK CTA CLINICAL HISTORY: headache. TECHNIQUE: Imaging Protocol: Axial CT angiography was performed with multi-slice acquisition and mu lti-planar and/or 3D reconstructions. CONTRAST MATERIAL: Intravenous: Omnipaque 350 Contrast volume:85 mL COMPARISON: CT CT ABDOMEN PELVIS W from 03/26/2018 FINDINGS: CT Head W/O: Ventricles and Extra axial spaces: Normal in size and morphology for the patient's age. Hemorrhage: None. Cerebral parenchyma: Normal. Midline shift: None. Brainstem/Cerebellum: Normal. Calvarium: Normal. Visualized Paranasal sinuses/Mastoids: Clear. Soft Tissues: Unremarkable. CTA Brain W: Internal Carotid Arteries: Petrous: Normal. Cavernous: Normal. Cerebral: Normal. Middle Cerebral Arteries: Right: No aneurysm, occlusion or significant stenosis. Left: No aneurysm, occlusion or significant stenosis. Anterior Cerebral Arteries: Right: No aneurysm, occlusion or significant stenosis. Left: No aneurysm, occlusion or significant stenosis. Posterior cerebral Arteries: Right: No aneurysm, occlusion or significant stenosis. Left: No aneurysm, occlusion or significant stenosis. Vertebral Arteries: Right: No aneurysm, occlusion or significant stenosis. Left: No aneurysm, occlusion or significant stenosis. Basilar Artery: No aneurysm, occlusion or significant stenosis. CTA Neck W: Common Carotid: Right: No aneurysm, occlusion or significant stenosis. Left: No aneurysm, occlusion or significant stenosis. External Carotid: Right: No aneurysm, occlusion or significant stenosis. Left: No aneurysm, occlusion or significant stenosis. Internal Carotid: Right: No aneurysm, occlusion or significant stenosis. Left: No aneurysm, occlusion or significant stenosis. Vertebral Artery: Right: No aneurysm, occlusion or significant stenosis. Left: No aneurysm, occlusion or significant stenosis. Lung Apices: Normal. Bones: Normal. Soft Tissues: Normal. IMPRESSION: 1. Normal CTA examination of the [place]. 2. Unremarkable noncontrast CT Head. 3. Normal CTA examination of the neck. RADIATION DOSE DELIVERED: Total DLP DATA REPOSITORY: All CT scans at this facility are submitted to the National Radiology Data Registry (NRDR) Dose Index Registry (DIR) with the [employer] (A[employer]). RADIATION OPTIMIZATION: All CT scans at this facility use at least one of these dose optimization te chniques: automated exposure control; mA and/or kV adjustment per patient size (includes targeted exa ms where dose is matched to clinical indication); or iterative reconstruction.
[2019-08-05 01:46] LABS: ALT 21 U/L (14-59); AST 18 U/L (15-37); Albumin 4.1 g/dL (3.4-5.0); Alkaline Phosphatase 52 U/L (46-116); BUN 13 mg/dL (7-18); Bilirubin, Total 0.4 mg/dL (0.2-1.0); CREATININE 0.94 mg/dL (0.55-1.02); Chloride 102 mmol/L (98-107); Glucose 102 mg/dL (74-106); Potassium 3.6 mmol/L (3.5-5.1); Sodium 137 mmol/L (136-145); Total Protein 7.4 g/dL (6.4-8.2)
[2019-08-05 01:53] LABS: HCG Qual (Serum) Negative
[2019-08-05] MEDS: Normal Saline Flush 10 ML SYR IVP (01:53)
[2019-08-05] MEDS: Omnipaque 350 MG/ML 100 ML BTL IJ (01:53)
[2019-08-05] MEDS: Normal Saline - Diluent 50 ML VIAL IV (01:53)
[2019-08-05 01:56] LABS: PTT Activated 25.7 sec (21.0-31.4)
--- NOTE | 2019-08-05 01:58 | DI.VRAD_ITS ---
PROCEDURE INFORMATION: Exam: CT Angiography Head With Contrast Exam date and time: 08/05/2019 1:03 AM Age: 23 years old Clinical indication: Pain; Patient HX: Headache and numbness in left arm TECHNIQUE: Imaging protocol: Computed tomography angiography of the head with intravenous contrast. 3D rendering: MIP and/or 3D reconstructed images were created by the technologist. Radiation optimization: All CT scans at this facility use at least one of these dose optimization techniques: automated exposure control; mA and/or kV adjustment per patient size (includes targeted exams where dose is matched to clinical indication); or iterative reconstruction. Contrast material: OMNIPAQUE 350; Contrast volume: 85 ml; Contrast route: IV RAC; COMPARISON: CT HEAD WO 01/30/2019 6:29 PM FINDINGS: Anterior cerebral arteries: No occlusion or significant stenosis. No aneurysm. Right internal carotid artery: Intracranial segment is patent with no significant stenosis or occlusion. No aneurysm. Right middle cerebral artery: No occlusion or significant stenosis. No aneurysm. Right posterior cerebral artery: No occlusion or significant stenosis. No aneurysm. Right vertebral artery: No occlusion or significant stenosis. No aneurysm. Left internal carotid artery: Intracranial segment is patent with no significant stenosis or occlusion. No aneurysm. Left middle cerebral artery: No occlusion or significant stenosis. No aneurysm. Left posterior cerebral artery: No occlusion or significant stenosis. No aneurysm. Left vertebral artery: No occlusion or significant stenosis. No aneurysm. Basilar artery: No occlusion or significant stenosis. No aneurysm. IMPRESSION: No large vessel stenosis or occlusion. PROCEDURE INFORMATION: Exam: CT Angiography Neck With Contrast Exam date and time: 08/05/2019 1:03 AM Age: 23 years old Clinical indication: Pain; Patient HX: Headache and numbness in left arm TECHNIQUE: Imaging protocol: Computed tomography angiography of the neck with intravenous contrast. 3D rendering: MIP and/or 3D reconstructed images were created by the technologist. Radiation optimization: All CT scans at this facility use at least one of these dose optimization techniques: automated exposure control; mA and/or kV adjustment per patient size (includes targeted exams where dose is matched to clinical indication); or iterative reconstruction. Contrast material: OMNIPAQUE 350; Contrast volume: 85 ml; Contrast route: IV RAC; COMPARISON: CT HEAD WO 01/30/2019 6:29 PM FINDINGS: Right common carotid artery: No stenosis. No dissection or occlusion. Right internal carotid artery: No stenosis of the extracranial segment. No dissection or occlusion. Right external carotid artery: No occlusion or stenosis of the origin. Right vertebral artery: No stenosis. No dissection or occlusion. Left common carotid artery: No stenosis. No dissection or occlusion. Left internal carotid artery: No stenosis of the extracranial segment. No dissection or occlusion. Left external carotid artery: No occlusion or stenosis of the origin. Left vertebral artery: No stenosis. No dissection or occlusion. Bones/joints: No acute fracture. Soft tissues: Normal. No significant soft tissue swelling. IMPRESSION: No stenosis or occlusion. REFERENCES: NASCET CRITERIA. The degree of internal carotid artery stenosis is based on NASCET criteria. Normal is no stenosis. Mild is less than 50% stenosis. Moderate is 50-69% stenosis. Severe is 70% to 99% stenosis. Total occlusion is no detectable patent lumen. Dictated and Authenticated by: See Arnold MD. Ordering:CINDY Cali MD
[2019-08-05 02:13] VITALS: BP 118/72; PULSE 68; RESP 18; TEMP 36.6; O2SAT 9
== END 2019-08-05 02:25 | disposition home or self-care (01) ==
PROVIDERS: Emergency Provider Emergency Medicine; PCP Family Medicine
DX: R20.0 Anesthesia of skin (principal); R51 Headache
CPT/HCPCS: 36415; 70496; 70498; 80053; 82550; 93005; 96374; 99285; 83735; 84703; 85025; 85610; 85730; 93010; 99284; J0780; J3490

== ENCOUNTER 2019-09-02 15:59 | Outpatient (REF) | payer OTHER, SELFPAY ==
--- NOTE | 2019-09-02 15:30 | PAPFT_PTH ---
PATIENT: Kate Acosta LOC: [facility] U#:[id number] AGE/SX: 23/F ROOM: RE09/02/[address]: JUDI Penn : 1995 BED: DIS: 09/02/2019 SPEC #: [id number] RECD: 09/02/19 16:49 STATUS: KRISTEN REJana #: [id number] GIRISH: 09/02/19 15:[address]: Nataly De La Rosa DEPT: [facility] Cytology RECD BY: Juana Prasad ENTERED: 09/02/19 16:49 SP TYPE: PAPFT ALFONSO DR: Gracie Horn Tissues: 1 - CX/ENDOCX FOR PAP SMEARS Procedures: PAP THIN PREP/[facility] Screening Comments: [id number]
[2019-09-04 08:57] LABS: Chlamydia Result Negative (Negative); GC Result Negative (Negative)
== END 2019-09-02 16:19 ==
LOC: LBN 15:59
PROVIDERS: PCP Family Medicine; Visit Provider Nurse Practitioner Family
DX: Z11.3 Encounter for screening for infections with a predominantly sexual mode of transmission (principal); Z12.4 Encounter for screening for malignant neoplasm of cervix
CPT/HCPCS: 87491; 87591; 88142

== ENCOUNTER 2020-01-03 04:48 | Outpatient (CLI) | payer OTHER, SELFPAY ==
--- NOTE | 2020-01-03 08:15 | DI.MRI_ITS ---
EXAM: MR BRAIN WO CLINICAL HISTORY: New headaches. Speech, vision change. Paresthesias,G43.109.R47.89,R20.2 TECHNIQUE: Multiplanar multisequence MRI of the brain was performed. COMPARISON: CT CT BRAIN NECK CTA from 08/05/2019 FINDINGS: VENTRICLES AND EXTRA AXIAL SPACES: Normal in size and morphology for the patient's age. MIDLINE SHIFT: None. CEREBRAL PARENCHYMA: No focus of restricted diffusion to suggest acute infarct. No space-occupying le dariana identified. HEMORRHAGE: None. BRAINSTEM/CEREBELLUM: Normal. CALVARIUM: Normal. VISUALIZED PARANASAL SINUSES/MASTOIDS:Clear. [place]: Normal flow void. PITUITARY GLAND: Unremarkable. OTHER FINDINGS: None. IMPRESSION: Unremarkable MRI of the brain. DATA REPOSITORY:
== END 2020-01-03 05:08 ==
PROVIDERS: PCP Family Medicine; Visit Provider Nurse Practitioner Adult Health
DX: G43.109 Migraine with aura, not intractable, without status migrainosus (principal); R47.89 Other speech disturbances; R20.2 Paresthesia of skin
CPT/HCPCS: 70551

== ENCOUNTER 2021-04-20 11:52 | Outpatient (REF) | payer OTHER, SELFPAY ==
--- NOTE | 2021-04-20 11:00 | PAPFT_PTH ---
PATIENT: Kate Acosta LOC: [facility] U#:[id number] AGE/SX: 25/F ROOM: RE04/20/[address]: JUDI Penn : 1995 BED: DIS: 04/20/2021 SPEC #: [id number] RECD: 04/20/21 12:57 STATUS: KRISTEN LAMA #: [id number] GIRISH: 04/20/21 11:[address]: Nataly De La Rosa DEPT: [facility] Cytology RECD BY: Juana Prasad ENTERED: 04/20/21 12:57 SP TYPE: PAPFT OTHR DR: Gracie Horn Tissues: 1 - CX/ENDOCX FOR PAP SMEARS Procedures: PAP THIN PREP/[facility] Screening Comments: [id number]
[2021-04-21 14:26] LABS: Chlamydia Result Negative (Negative); GC Result Negative (Negative)
== END 2021-04-20 11:53 | disposition home or self-care (01) ==
LOC: LBN 11:52
PROVIDERS: PCP Family Medicine; Visit Provider Nurse Practitioner Family
DX: Z11.3 Encounter for screening for infections with a predominantly sexual mode of transmission (principal); Z12.4 Encounter for screening for malignant neoplasm of cervix; R87.610 Atypical squamous cells of undetermined significance on cytologic smear of cervix (ASC-US)
CPT/HCPCS: 87491; 87591; 88142

== ENCOUNTER 2021-08-30 04:11 | Outpatient (CLI) | payer OTHER, SELFPAY ==
[2021-08-30 13:51] LABS: HCT 37.8 % (36.0-46.0); MCH 29.2 pg (27.0-33.0); MCHC 34.4 % (32.0-36.0); MCV 85 fL (80-95); MPV 9.9 fL (8.0-11.0); Platelet Count 340 10^3/uL (130-400); RBC 4.45 10^6/uL (3.93-5.22); RDW 11.8 % (11.7-14.6); RDW-SD 36.4 fL; WBC 8.51 10^3/uL (4.4-10.8)
[2021-08-30 15:34] LABS: TSH (W/Ref FT4) 1.28 uIU/mL (0.36-3.74)
== END 2021-08-30 04:12 | disposition home or self-care (01) ==
LOC: LBO 04:11
PROVIDERS: PCP Family Medicine; Visit Provider Nurse Practitioner Family
DX: N92.5 Other specified irregular menstruation; N93.8 Other specified abnormal uterine and vaginal bleeding
CPT/HCPCS: 36415; 85027; 84443

== ENCOUNTER 2021-11-05 14:52 | Outpatient (REF) | payer OTHER, SELFPAY ==
[2021-11-08 14:44] LABS: Chlamydia Result Negative (Negative); GC Result Negative (Negative)
== END 2021-11-05 14:53 | disposition home or self-care (01) ==
LOC: LBN 14:52
PROVIDERS: PCP Family Medicine; Visit Provider Nurse Practitioner Family
DX: R30.0 Dysuria (principal); Z11.3 Encounter for screening for infections with a predominantly sexual mode of transmission
CPT/HCPCS: 87491; 87591; 87086

== ENCOUNTER 2021-11-26 19:18 | Outpatient (REF) | payer OTHER, SELFPAY ==
[2021-11-26 15:51] LABS: ALT 15 U/L (14-59); AST 15 U/L (15-37); Albumin 4.4 g/dL (3.4-5.0); Alkaline Phosphatase 61 U/L (46-116); Anion Gap 8.9 mmol/L (3-11); BUN 11 mg/dL (7-18); Bilirubin, Total 0.3 mg/dL (0.2-1.0); CO2 27.1 mmol/L (21.0-32.0); CREATININE 0.7 mg/dL (0.55-1.02); Calcium 9.1 mg/dL (8.5-10.1); Chloride 103 mmol/L (98-107); Estimated GFR 123.78 (mL/min/1.73m2); Glucose 78 mg/dL (74-106); Potassium 4.2 mmol/L (3.5-5.1); Sodium 139 mmol/L (136-145); Total Protein 7.4 g/dL (6.4-8.2)
[2021-11-26 16:29] LABS: Abs Immature Grans 0.02 10^3/uL (0.0-0.06); Absolute Basophil Count 0.05 10^3/uL (0.0-0.2); Absolute Eosinophil Count 0.02 10^3/uL (0.0-0.7); Absolute Monocyte Count 0.46 10^3/uL (0.1-0.8); Absolute Neutrophil Count 3.03 10^3/uL (1.2-6.7); Basophils % 0.9; Eosinophils % 0.4; HCT 39.9 % (36.0-46.0); HGB 13.8 g/dL (11.2-15.7); Immature Grans % 0.4; Lymphocytes % 35.8; MCH 29.7 pg (27.0-33.0); MCHC 34.6 % (32.0-36.0); MCV 86 fL (80-95); MPV 10.6 fL (8.0-11.0); Monocytes % 8.2; Neutrophils % 54.3; Platelet Count 343 10^3/uL (130-400); RBC 4.64 10^6/uL (3.93-5.22); RDW-SD 37.7 fL; WBC 5.58 10^3/uL (4.4-10.8)
[2021-11-27 18:44] LABS: Chlamydia Result Negative (Negative); GC Result Negative (Negative)
== END 2021-11-26 19:19 | disposition home or self-care (01) ==
LOC: LBN 19:18
PROVIDERS: PCP Family Medicine; Visit Provider Physician Assistant Medical
DX: R10.30 Lower abdominal pain, unspecified (principal); N89.8 Other specified noninflammatory disorders of vagina
CPT/HCPCS: 80053; 87329; 87491; 87591; 85025; 87480; 87510; 87660

== ENCOUNTER 2022-06-06 13:29 | Outpatient (REF) | payer BC, SELFPAY ==
--- NOTE | 2022-06-06 13:10 | PAPFT_PTH ---
PATIENT: Kate Acosta LOC: [facility] U#:[id number] AGE/SX: 26/F ROOM: RE06/06/[address]: Clary Fitzpatrick NP : 1995 BED: DIS: 06/06/2022 SPEC #: [id number] RECD: 06/06/22 17:22 STATUS: KRISTEN REJana #: [id number] GIRISH: 06/06/22 13:[address]: Clary Fitzpatrick NP DEPT: [facility]ology RECD BY: Juana Prasad ENTERED: 06/06/22 17:22 SP TYPE: PAPFT OTHR DR: Gracie Horn Tissues: 1 - CX/ENDOCX FOR PAP SMEARS Procedures: PAP THIN PREP/[facility] Screening Comments: [id number]
== END 2022-06-06 13:30 | disposition home or self-care (01) ==
LOC: LBN 13:29
PROVIDERS: PCP Family Medicine; Visit Provider Nurse Practitioner Women's Health
DX: Z12.4 Encounter for screening for malignant neoplasm of cervix (principal)
CPT/HCPCS: 88142

== ENCOUNTER 2022-07-01 16:38 | Outpatient (REF) | payer BC, SELFPAY ==
[2022-07-01 19:36] LABS: MCH 29.2 pg (27.0-33.0); MCHC 34.2 % (32.0-36.0); MCV 85 fL (80-95); MPV 10.2 fL (8.0-11.0); Platelet Count 382 10^3/uL (130-400); RBC 4.45 10^6/uL (3.93-5.22); RDW 12.1 % (11.7-14.6); RDW-SD 37.8 fL; WBC 8.87 10^3/uL (4.4-10.8)
[2022-07-01 20:09] LABS: ALT 19 U/L (14-59); AST 15 U/L (15-37); Albumin 4.4 g/dL (3.4-5.0); Alkaline Phosphatase 72 U/L (46-116); BUN 13 mg/dL (7-18); Bilirubin, Total 0.5 mg/dL (0.2-1.0); CREATININE 0.9 mg/dL (0.55-1.02); Calcium 9.5 mg/dL (8.5-10.1); Chloride 105 mmol/L (98-107); Estimated GFR 91.55 (mL/min/1.73m2); FREE T4 1.02 ng/dL (0.76-1.46); Glucose 81 mg/dL (74-106); Potassium 4.5 mmol/L (3.5-5.1); Sodium 140 mmol/L (136-145); TSH (W/Ref FT4) 0.83 uIU/mL (0.36-3.74); Total Protein 7.1 g/dL (6.4-8.2)
[2022-07-04 10:27] LABS: Hepatitis C Ab w Rflx HCV PCR Negative (Negative)
[2022-07-04 10:34] LABS: HIV-1/2 Ag & Ab Screen Negative (Negative)
== END 2022-07-01 16:39 | disposition home or self-care (01) ==
LOC: NCHCN 16:38
PROVIDERS: PCP Family Medicine; Visit Provider Family Medicine
DX: Z00.00 Encounter for general adult medical examination without abnormal findings (principal); R11.0 Nausea; H81.13 Benign paroxysmal vertigo, bilateral; Z11.4 Encounter for screening for human immunodeficiency virus [HIV]; Z13.1 Encounter for screening for diabetes mellitus; Z11.59 Encounter for screening for other viral diseases; Z13.29 Encounter for screening for other suspected endocrine disorder
CPT/HCPCS: 80053; 85027; 86803; 87389; 83036; 84439; 84443

== ENCOUNTER 2022-07-07 09:11 | Outpatient (RCR) | payer BC, SELFPAY ==
--- NOTE | 2022-07-07 09:15 | HOLTER_ITS ---
APPROVED REPORT Conclusion This is a 48-hour Holter monitor ordered for palpitations Predominant rhythm was sinus with an average heart rate of 98. Minimum was 62, maximum 187. Sinus t achycardia was present for approximately 15 hours of the recording There were no atrial or ventricular dysrhythmias There was no high-grade AV block, no pauses greater than 3 seconds, no supraventricular tachycardia o r atrial fibrillation
== END 2022-07-17 23:59 | disposition home or self-care (01) ==
LOC: CARDOPNVT 09:11
PROVIDERS: PCP Family Medicine; Visit Provider Family Medicine
DX: R00.2 Palpitations (principal); R00.0 Tachycardia, unspecified
CPT/HCPCS: 93225; 93226

== ENCOUNTER 2022-07-09 12:44 | Outpatient (REF) | payer BC, SELFPAY ==
[2022-07-13 00:56] LABS: Metanephrines, U 255 mcg/24 h; Normetanephrine, U 308 mcg/24 h; Total Metanephrines, U 563 mcg/24 h; Urine Volume 2200 mL
== END 2022-07-09 12:45 | disposition home or self-care (01) ==
LOC: LBN 12:44
PROVIDERS: PCP Family Medicine; Visit Provider Family Medicine
DX: R00.2 Palpitations (principal)
CPT/HCPCS: 81050; 83835

== ENCOUNTER 2022-07-29 13:58 | Outpatient (REF) | payer BC, SELFPAY ==
[2022-07-30 20:48] LABS: Chlamydia Result Negative (Negative); GC Result Negative (Negative)
== END 2022-07-29 13:59 | disposition home or self-care (01) ==
LOC: LBN 13:58
PROVIDERS: PCP Family Medicine; Visit Provider Obstetrics & Gynecology Gynecology
DX: R10.2 Pelvic and perineal pain (principal)
CPT/HCPCS: 87491; 87591

== ENCOUNTER 2022-07-29 14:52 | Outpatient (CLI) | payer BC, SELFPAY ==
[2022-07-29 14:53] LABS: HCG Quant, Pregnancy < 1 mIU/mL (1-3)
== END 2022-07-29 14:53 | disposition home or self-care (01) ==
LOC: LBO 14:52
PROVIDERS: PCP Family Medicine; Visit Provider Obstetrics & Gynecology Gynecology
DX: R10.2 Pelvic and perineal pain (principal); N92.5 Other specified irregular menstruation
CPT/HCPCS: 36415; 84702

== ENCOUNTER 2022-09-13 00:39 | Outpatient (CLI) | payer BC, SELFPAY ==
--- NOTE | 2022-09-13 15:00 | DI.US_ITS ---
APPROVED REPORT EXAM: Comprehensive 2D, Doppler, and color-flow Echocardiogram Patient Location: Out-Patient Bridge Leverman: Marty Nieves RDMS RV[facility] Indications: tachycardia, palpitations Other Information Study Quality: Adequate Conclusion Normal left ventricular wall thickness and chamber size. Ejection fraction is 60%. Wall motion is n ormal Normal right ventricular size and systolic function Both atria are normal in size There is no structural or hemodynamically significant valvular disease Estimated right ventricular systolic pressure is 18 mmHg Wall motion Left Ventricle The left ventricle is normal size. The left ventricular systolic function is normal. The left ventric ular ejection fraction is within the normal range. There is normal left ventricular wall thickness. T here is normal LV segmental wall motion. There is no ventricular septal defect visualized. LVEF is 60 %. Right Ventricle The right ventricle is normal size. The right ventricular systolic function is normal. The RVSP is 17 .9 mmHg. Atria The left atrium size is normal. The right atrium size is normal. The interatrial septum is intact wit h no evidence for an atrial septal defect. Aortic Valve The aortic valve is normal in structure. Aortic valve is trileaflet. There is no aortic valvular sten osis. No aortic regurgitation is present. Mitral Valve The mitral valve is normal in structure. No evidence of mitral valve stenosis. There is no mitral stephany ve regurgitation noted. Tricuspid Valve The tricuspid valve is normal in structure. There is no tricuspid valve stenosis. Mild tricuspid regu rgitation. Pulmonic Valve The pulmonary valve is normal in structure. There is no pulmonic valvular stenosis. There is no pulmo rosalina valvular regurgitation. Great Vessels The aortic root is normal in size. Ascending aorta is normal in caliber. Aortic arch is normal in [place]alea iber. IVC is normal in size and collapses >50% with inspiration. Pericardium There is no pericardial effusion. 2D Dimensions IVSD d PLAX 0.48 cm F: 0.6-1.0 LV Vol A2C d MOD 56.7 mL LVPW d PLAX 0.48 cm F: 0.6 - 1.0 LV Vol A4C d MOD 60.2 mL LVID d PLAX 4.36 cm F: 3.8 - 5.2 LA vol/ BSA A4C s A-L 16.0 mL/m2 LVDs 2.15 cm F: 2.2 - 3.5 LA Area A4C s MOD 12.03 cm2 Ao Root d 2.53 cm F: 2.7 - 3.3 LV EF A4C MOD 60.1 % Ao Asc Diam d 2.35 cm F: 2.3 - 3.1 LV EF A2C MOD 60.4 % LV EF Teichholz 81.5 % LV EF Biplane MOD 58.4 % LVEF (Devine's) 58.35 % F: 54 - 74 SV 34.28 mL LV Volume 45.97 mL F: 46 - 106 SV Index 19.37 mL/m2 LV Volume Index 25.97 mL/m2 F: 29 - 61 LV Vol Biplane MOD 58.8 mL FS 49.90 % M-Mode TAPSE 2.76 cm (M/F) >1.7 LV Diastology MV E' medial 0.158 (>0.07 m/s) E/A Ratio 1.1 LV E/e MED 5.55 (<14) MV E Vmax 0.88 (0.4-1.3 m/s) MV E' lateral 0.181 (>0.1 m/s) MV A Vmax 0.80 (0.4-1.3 m/s) LV E/e LAT 4.85 (<14) MV E/A Ratio 1.07 MV E/E' medial 5.57 MV E/E' lateral 4.86 Aortic Valve LVOT Area 3.18 cm2 AoV Area Vmax 2.51 cm2 LVOT Vmax 1.04 m/s AoV Area/ BSA (Vmax) 1.42 cm2/m2 LVOT Mean Jeff. 0.68 m/s KATLIN Mean Jeff. 2.25 cm2 LVOT Peak Grad 4.3 mmHg KATLIN Mean Jeff. Index 1.27 cm2/m2 LVOT Mean Grad 2.1 mmHg LVOT VTI 0.177 m LVOT Diam s 2.00 cm AoV Vmax 1.31 m/s Velocity Ratio 0.79 AoV Mean Jeff. 0.95 m/s AoV Peak Grad 6.9 mmHg LVOT SV 56.44 mL AoV Mean Grad 4.0 mmHg AoV VTI 0.217 m AoV Area VTI 2.60 cm2 AoV Area/ BSA (VTI) 1.47 cm/m2 Mitral Valve MV DT 222 (160-240 msec) MV PHT 64 msec MV Area PHT 3.42 cm2 MV VTI 0.224 m MV Area VTI 2.52 (4.0-6.0 cm2) Pulmonary Valve PV Vmax 1.14 (0.5-1.5 m/s) RVOT Peak Gr. 2.42 mmHg PV Peak Grad 5.2 mmHg RVOT Mean Gr. 1.25 mmHg PV Mean Grad 2.9 mmHg RVOT VTI 0.161 m PV VTI 0.191 m RVOT Vmax 0.78 m/s Tricuspid Valve TR Peak Grad 14.9 mmHg TR Vmax 1.93 m/s RA Pressure 3.00 mmHg RVSP (TR) 17.9 mmHg
== END 2022-09-13 00:59 ==
LOC: DI 00:40
PROVIDERS: PCP Family Medicine; Visit Provider Family Medicine
DX: R00.2 Palpitations (principal); R00.0 Tachycardia, unspecified
CPT/HCPCS: 93306

== ENCOUNTER 2022-10-20 16:08 | Outpatient (CLI) | payer BC, SELFPAY ==
[2022-10-20 16:43] LABS: HCG Quant, Pregnancy 499 mIU/mL (1-3)
[2022-10-23 14:56] LABS: Syphilis IgG w/Reflex Nonreactive (Nonreactive)
[2022-10-24 09:18] LABS: HIV-1/2 Ag & Ab Screen Negative (Negative)
[2022-10-24 13:25] LABS: HSV Type 1 Ab, IgG Negative (Negative); HSV Type 2 Ab, IgG Negative (Negative)
== END 2022-10-20 16:09 | disposition home or self-care (01) ==
LOC: LBO 16:08
PROVIDERS: PCP Family Medicine; Visit Provider Advanced Practice Midwife
DX: Z11.3 Encounter for screening for infections with a predominantly sexual mode of transmission (principal); Z98.890 Other specified postprocedural states
CPT/HCPCS: 36415; 87389; 84702; 86695; 86696; 86780

== ENCOUNTER 2022-10-28 02:27 | Outpatient (CLI) | payer BC, SELFPAY ==
[2022-10-28 16:25] LABS: HCG Quant, Pregnancy 89 mIU/mL (1-3)
== END 2022-10-28 02:28 | disposition home or self-care (01) ==
LOC: LBO 02:27
PROVIDERS: Advanced Practice Midwife; PCP Family Medicine; Visit Provider Family Medicine
DX: Z98.890 Other specified postprocedural states (principal)
CPT/HCPCS: 36415; 86850; 86900; 86901; 84702

== ENCOUNTER 2023-08-10 21:15 | Emergency (ER) | payer BC, SELFPAY ==
[2023-08-10] VITALS (8 sets, daily range): BP systolic 91–155; BP diastolic 48–99; PULSE 79–112; RESP 18–20; TEMP 36.4; O2SAT 98–100
--- NOTE | 2023-08-10 21:28 | W.ED.GENAD ---
Discharge Plan Disposition Patient Disposition: Home Condition: Stable Discharge Details Clinical Impression: Abdominal pain of unknown cause Primary Care Provider: Gracie Horn ED Provider: Andrew Victor Home Meds and New Rx's Prescriptions: Continued sumatriptan [Imitrex] 20 mg/actuation spray,non-aerosol 20 mg intranasal ONCE PRN (Reason: migraine headache) Qty: 6 3RF Rx Instructions: administer into one nostril as a single dose. May repeat after 2 hours. No more than 2 doses in 24 hours. ondansetron HCl 4 mg tablet 4 mg PO Q8H medroxyprogesterone [Depo-Provera] 150 mg/mL syringe 150 mg IM [id number] Qty: 1 4RF acetaminophen 325 mg tablet 325 mg PO ONCE PRN Discharge Instructions Instructions: Famotidine (By mouth), Gastritis (ED), Diet for Stomach Ulcers and Gastritis (ED), Abdominal Pain (ED), Gastroparesis (ED) Additional Instructions: You were seen in the emergency department for your severe sudden onset abdominal pain shortly after significant meal. You may have an element of gastritis or peptic ulcer that is irritated by certain foods. You may also have gastroparesis, please talk to your primary care provider about these diagnoses, trial [id number] famotidine twice per day for about 2 weeks for possible relief., You likely had your pain from the large amount of stomach contents we saw on CT. This is likely passed and you showed complete improvement. Otherwise your labs are reassuring. Please return to the emergency department for any emergent concerns like sudden onset severe abdominal pain, chest pain, shortness of breath, fever, intractable nausea or vomiting. Referrals: Gracie Horn MD [Primary Care Provider] - [facility] General Date/Time Provider Initiated Documentation: 08/10/23 21:22. HPI Narrative: 27 year-old female presents to ED today by POV/ambulating with a chief complaint of severe sudden onset upper abdominal pain, around 30 mins ago. Quality described as sharp stabbing upper abdominal pain, nausea, no radiation to fever, shortness of breath, palpitations, near syncope, diaphoresis. Severity is described as 10/10. Palliating factors include nothing specific attempted. Provoking factors include nothing specific. Events leading up to the incident/Associated Symptoms: Patient denies any FHx of abdominal pathology, denies prior abdominal surgery. Patient not anticoagulated. Related Data Home Medications Medication Instructions Recorded Confirmed sumatriptan 20 mg/actuation nasal 20 mg intranasal ONCE PRN migraine 12/26/19 08/10/23 spray (Imitrex) headache #6 ea medroxyprogesterone 150 mg/mL 150 mg IM [id number] #1 mL 10/18/22 08/10/23 intramuscular syringe (Depo-Provera) ondansetron HCl 4 mg tablet 4 mg PO Q8H 04/04/23 08/10/23 acetaminophen 325 mg tablet 325 mg PO ONCE PRN 07/28/23 08/10/23 Previous Rx's Medication Instructions Recorded sumatriptan 20 mg/actuation nasal 20 mg intranasal ONCE PRN migraine 12/26/19 spray (Imitrex) headache #6 ea medroxyprogesterone 150 mg/mL 150 mg IM [id number] #1 mL 10/18/22 intramuscular syringe (Depo-Provera) Allergies Allergy/AdvReac Type Severity Reaction Status Date / Time amoxicillin Allergy Intermediate RASH Verified 08/10/23 21:20 Penicillins Allergy Intermediate RASH Verified 08/10/23 21:20 General Stated Complaint: Abd Prob CHUCK: 3 Review of Systems All systems reviewed & are unremarkable except as noted in HPI and below Exam Narrative Exam Narrative: GENERAL APPEARANCE: Well-nourished, non-toxic, awake and alert, atraumatic, no acute distress. SKIN: Warm, pink, dry, intact, without rashes/lesions/ulcerations. HEAD: Normocephalic, atraumatic, normal hair distribution for gender/age. EYES: Pupils PERRLA, EOMs intact without nystagmus, normal conjunctiva, no exudates on lids/lashes. ENT: Nares patent, no circumoral cyanosis, no facial swelling NECK: Supple, trachea midline, painless cervical ROM. LUNGS/CHEST: Lungs CTA bilaterally- no rhonchi/rales/wheezes diffusely, non-labored respirations, normal A/P diameter, symmetrical expansion, no chest wall deformity HEART (CV/PV): Regular rate and rhythm without murmur, no peripheral edema, no JVD. ABDOMEN: Soft, non-distended, no guarding, positive Lawrence's sign, epigastric tenderness, +rebound tenderness, +Rovsings with palpation of lower abdominal, mild bilateral CVA tenderness. MSK: Normal ROM, no swelling/deformity to bilateral UEs or LEs, moving all extremities without weakness, no cyanosis, spine midline without tenderness, normal curvature. NEURO: Mental Status AAOx4 - alert to person, place, time, events No facial droop, no forehead involvement. Motor: No focal weakness - strength 5/5 in bilateral UEs and LEs, proximal and distal, symmetric. Sensory: sensation intact to light touch globally. Gait normal: patient ambulated without ataxia into ED room. PSYCH: euthymic, cooperative, pleasant, appropriate speech Course Vital Signs Vital signs: Vital Signs Temperature 36.4 C 08/10/23 21:17 Pulse 97 H 08/10/23 21:17 Respiratory Rate 18 08/10/23 21:17 Blood Pressure 155/99 H 08/10/23 21:17 Pulse Oximetry 98 08/10/23 21:17 Temperature 36.4 C 08/10/23 21:17 Temperature Source Skin 08/10/23 21:17 Pulse 97 H 08/10/23 21:17 Respiratory Rate 18 08/10/23 21:17 Respiratory Effort Normal, Non-Labored 08/10/23 21:20 Blood Pressure 155/99 H 08/10/23 21:17 Blood Pressure Position Sitting 08/10/23 21:17 Pulse Oximetry 98 08/10/23 21:17 Oxygen Delivery Method Room Air 08/10/23 21:17 Oxygen Flow Rate 0 08/10/23 21:17 Pain Level 9 08/10/23 21:17 Medical Decision Making This dictation utilizes [id number] dictation software and may contain unedited grammatical errors. 27 y/o F presents to ED today with a chief complaint of severe sudden onset upper abdominal pain, nausea without vomiting, denies any prior history of this. Denies fever, denies shortness of breath. Patients' medical history: POTS, chronic nausea, long COVID, migraine. Family and social history: denies Fhx of abdominal problems, lives with spouse, eats normal diet. Pertinent exam findings / vital signs include ABDOMEN: Soft, non-distended, no guarding, positive Lawrence's sign, epigastric tenderness, +rebound tenderness, +Rovsings with palpation of lower abdominal, mild bilateral CVA tenderness.. Differential / pathologies of concern include biliary colic, SBO, volvulus or intussusception, gastric or duodenal ulcer, pancreatitis, renal colic, less likely mesenteric ischemia or aortic pathology Diagnostic studies of: -CBC, BMP, UA, lipase, lactate, liver panel, procalcitonin, troponin, CT abdomen pelvis with contrast, EKG. -CBC shows no leukocytosis, no anemia -BMP shows hypokalemia of 3.0 > repleting -Lactate 1.8, procalcitonin <0.1 do not suspect sepsis -initial trop negative- do not suspect we need a repeat with a completely 100% improved exam and likely GI as source on CT -UA nonspecific, ketones, urobili, POC urine negative -CT shows significantly distended and full stomach, question obstruction- vRAD read states no findings -EKG sinus rhythm at 79 bpm with P waves with a narrow complex QRS, normal axis, good R wave progression, no ST changes of ischemia, normal QT/QTc Interventions of: -1L IVF, 1g IV APAP, 15mg IV Ketorlac, 4mg IV Zofran > no relief, added 100mcg fentanyl and 5mg IV compazine. ED Course/Assessment/Plan: 27-year-old otherwise healthy female presents with severe epigastric pain sudden onset. Pain was not well-controlled with 100 mcg of fentanyl, Toradol and Tylenol, received multiple doses of antiemetics including Zofran and Compazine. Labs are reassuring for no emergent pathology, CT shows a distended and full stomach we did discuss with the rad radiologist does not suspect obstruction here. She likely over ate before she came, when I discussed this with the patient she did have buffalo wings and a cheeseburger right before the pain onset. Question if she has an element of gastritis or gastroparesis she may need to be worked up by primary care provider for gastroparesis. I am recommending she trial famotidine twice a day for 2 weeks and discuss with her primary care possibility of needing endoscopy at some point. Counseled on incidental liver findings and talking to PCP about surveillance., Strict return criteria for any severe increase in abdominal pain especially with intractable nausea and vomiting. Disposition of Abdominal Pain of Unknown Cause. Patient verbalized understanding of the plan and return to ED criteria and engaged in shared decision making. Medical Records Medical records reviewed: Yes I reviewed the patient's medical records. Imaging Data Radiologic Study: Attestation: I personally reviewed and interpreted this imaging study as follows: Imaging: CT Scan My impression: Significantly distended stomach, calling vRAD to confirm no evidence for obstruction near the duodenum. Radiologist's impression: Exam: CT Abdomen And Pelvis With Contrast Exam date and time: 08/10/2023 10:01 PM Age: 27 years old Clinical indication: Other: Severe epigastric pain TECHNIQUE: Imaging protocol: Computed tomography of the abdomen and pelvis with contrast. Contrast material: OMNI 350; Contrast volume: 100 ml; Contrast route: INTRAVENOUS (IV); COMPARISON: CT ABDOMEN PELVIS W 03/26/2018 8:58 PM FINDINGS: Lungs: Lung bases are clear. Liver: Subcentimeter hypodensity in the lateral left hepatic lobe is too small to characterize but appears mildly complex and more prominent compared to prior. Liver is not enlarged. There is mild periportal edema. Gallbladder and bile ducts: Unremarkable. No calcified stones. No ductal dilation. Pancreas: Unremarkable. No ductal dilation. Spleen: Unremarkable. No splenomegaly. Adrenal glands: No adrenal mass. Kidneys and ureters: Symmetric renal enhancement without mass. No hydronephrosis. Ureters are normal in course and caliber. Stomach and bowel: Stomach mildly distended by ingested material without focal gastric mural thickening. No evidence of bowel obstruction. No definite focal bowel wall thickening allowing for degree of bowel distension. Appendix: Within normal limits. Intraperitoneal space: No free fluid in the abdomen or pelvis. No free air. Vasculature: No abdominal aortic aneurysm or evidence of dissection. Lymph nodes: No pathologically enlarged lymph nodes. Urinary bladder: Unremarkable as visualized. Reproductive: Unremarkable as visualized. Bones/joints: Unremarkable. No acute fracture. Soft tissues: No focal abnormality. IMPRESSION: 1. No evidence of bowel obstruction. 2. Mild periportal edema. Can be seen in association with aggressive fluid resuscitation however recommend correlation with LFTs to exclude acute hepatic pathology. 3. Subcentimeter hypodensity in the lateral left hepatic lobe is too small to characterize but appears mildly complex and more prominent compared to prior. Follow-up imaging per local radiologist recommendations. Dictated and Authenticated by: Wild Patel MD. Ordering:YUSRA Morales MD Lab Data Lab results reviewed: Yes I reviewed the patient's lab results. Labs: Laboratory Tests Range/Units 08/10/23 08/10/23 21:23 21:28 WBC (4.4-10.8) 10^3/uL 9.16 RBC (3.93-5.22) 10^6/uL 4.66 Hgb (11.2-15.7) g/dL 13.7 Hct (36.0-46.0) % 40.0 MCV (80-95) fL 86 MCH (27.0-33.0) pg 29.4 MCHC (32.0-36.0) % 34.3 RDW (11.7-14.6) % 12.1 Plt Count (130-400) 10^3/uL 363 MPV (8.0-11.0) fL 10.0 Immature Gran % % 0.1 Neutrophils % % 53.0 Lymphocytes % % 38.5 Monocytes % % 7.4 Eosinophils % % 0.5 Basophils % % 0.5 Nucleated RBC % (0.0-0.3) % 0.0 Absolute Neutrophils (1.2-6.7) 10^3/uL 4.84 Absolute Lymphocytes (1.2-3.4) 10^3/uL 3.53 H Absolute Monocytes (0.1-0.8) 10^3/uL 0.68 Absolute Eosinophils (0.0-0.7) 10^3/uL 0.05 Absolute Basophils (0.0-0.2) 10^3/uL 0.05 VBG Lactate (0.6-1.4) mmol/L 1.8 H Sodium (136-145) mmol/L 138 Potassium (3.5-5.1) mmol/L 3.0 L Chloride (98-107) mmol/L 102 Carbon Dioxide (21.0-32.0) mmol/L 26.2 Anion Gap (3-11) mmol/L 9.8 BUN (7-18) mg/dL 13 Creatinine (0.55-1.02) mg/dL 0.9 Est GFR (CKD-EPI 2020) (mL/min/1.73m2) 90.98 Glucose (74-106) mg/dL 127 H Calcium (8.5-10.1) mg/dL 8.9 Total Bilirubin (0.2-1.0) mg/dL 0.5 Conjugated Bilirubin (0.0-0.2) mg/dL 0.1 AST (15-37) U/L 17 ALT (14-59) U/L 23 Alkaline Phosphatase (46-116) U/L 75 Troponin I (< or =60) ng/L < 50 Total Protein (6.4-8.2) g/dL 7.6 Albumin (3.4-5.0) g/dL 4.5 Lipase (16-77) U/L 55 Procalcitonin ng/mL < 0.1 Urine Color (Yellow) Yellow Urine Clarity (Clear) Cloudy Urine pH (5-8) 7.5 Ur Specific [place] (1.005-1.025) 1.020 Urine Protein (Neg-Trace) mg/dL Negative Urine Ketones (Negative) mg/dL 15 H Urine Blood (Negative) Negative Urine Nitrite (Negative) Negative Urine Bilirubin (Negative) Negative Urine Urobilinogen (Up to 0.2) mg/dL 1.0 H Ur Leukocyte Esterase (Negative) Negative Urine Glucose (Negative) mg/dL Negative Quality:SDOH Health Related Social Needs: No Data to Display PFSH All Active Problems (Updated 08/10/23 @ 23:46 by CUONG Stafford) Abdominal pain of unknown cause (Acute) 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 (Acute) Encounter for Depo-Provera contraception (Acute) History of elective (Acute) Initiation of Depo Provera (Acute) Routine screening for STI (sexually transmitted infection) (Acute) Pelvic pain (Acute) Alteration in speech (Acute) Migraine headache with aura (Acute) Medical History (Updated 08/10/23 @ 23:46 by CUONG Stafford) Nausea POTS (postural orthostatic tachycardia syndrome) Chronic nausea Missed menses Paresthesias Daily nausea Chronic constipation Headache Surgical History (Updated 10/20/22 @ 15:31 by Kira Tiwari) No significant past surgical history Family History (Updated 07/28/23 @ 10:08 by Iris Pugh) Mother Well adult Father Well adult Depression family hx Anxiety family hx Family history of gynecological problem Other disorders of lung family hx Maternal Grandfather Family history of heart failure Paternal Grandfather Family history of heart failure Social History (Updated 07/28/23 @ 10:17 by Iris Pugh) Smoking/Tobacco Use Status: Current every day Tobacco Type: e-cigarettes and smokeless tobacco Smoking risk assessment performed?: Yes Alcohol Intake: never Drug use: Never Substance use type: does not use Household members: significant other Housing: house Pets and animals: Yes Pets and animals: dog(s) What type of physical activity do you participate in: none Seatbelt use: always Do you feel safe at home: Yes Do you feel safe in your relationship?: Yes Female Reproductive History Menstrual Age of Menarche: 14 control method: none History History 1 Para 0 Hx # Term Pregnancies Multiple births Hx # Pregnancies Ectopic pregnancies AB induced 1 Hx Number of Living Children AB spontaneous Past Pregnancies Del. Date GA/Weeks # Preg Succ Route Wgt Sex Labor Lgth Anesthesia Location [facility] 10/10/22 No [facility]
--- NOTE | 2023-08-10 21:30 | DI.CT_ITS ---
Exam(s) CT ABDOMEN PELVIS W EXAM: CT ABDOMEN PELVIS W CLINICAL HISTORY: severe epigastric pain. TECHNIQUE: Imaging Protocol: Axial computed tomography images with coronal and sagittal reformatted images were created and reviewed CONTRAST MATERIAL: Intravenous: Omnipaque 350 Contrast volume:100 ml Oral: / no COMPARISON: CT CT ABDOMEN PELVIS W from 03/26/2018 FINDINGS: ABDOMEN and PELVIS: Lung Bases: No acute findings. Liver: Mild periportal edema. Normal density. No suspicious mass. Gallbladder and biliary tract: No radiodense calculus. No biliary dilation. Pancreas: Normal density. No abnormal calcifications or inflammatory process. No evidence of mass. Spleen: Normal. Kidneys: Normal size, contour and axis. No radiodense stones. No obstructive uropathy. No suspicious masses seen. Adrenal glands: No masses seen. Vasculature: Abdominal aorta non-dilated. Soft tissues: Unremarkable. Bladder: No gross wall thickening. No calculi.No focal mass. Bowel: Stomach is somewhat distended with food. No wall thickening. No findings to suggest gastric outlet obstruction. No obstruction. No bowel wall thickening. Appendix normal. Normal quantity of stool. Peritoneal cavity: No ascites. No focal collection. No mesenteric inflammatory response. Bones: Unremarkable for age. Reproductive organs: Unremarkable. Lymph nodes: No pathologically enlarged lymph nodes. IMPRESSION:: No acute abnormality in the abdomen or pelvis. RADIATION DOSE DELIVERED: 770.15mGy.cm Total DLP DATA REPOSITORY: All CT scans at this facility are submitted to the National Radiology Data Registry (NRDR) Dose Index Registry (DIR) with the [employer] (ACR). RADIATION OPTIMIZATION: All CT scans at this facility use at least one of these dose optimization te chniques: automated exposure control; mA and/or kV adjustment per patient size (includes targeted exa ms where dose is matched to clinical indication); or iterative reconstruction.
[2023-08-10 21:35] LABS: Bilirubin Negative (Negative); Blood Negative (Negative); Clarity Cloudy (Clear); Glucose Negative (Negative); Ketones 15 mg/dL (Negative); Leukocyte Esterase Negative (Negative); Nitrite Negative (Negative); pH 7.5 (5-8)
[2023-08-10 21:41] LABS: Lactate 1.8 mmol/L (0.6-1.4)
[2023-08-10 21:44] LABS: Abs Immature Grans 0.01 10^3/uL (0.0-0.06); Absolute Basophil Count 0.05 10^3/uL (0.0-0.2); Absolute Eosinophil Count 0.05 10^3/uL (0.0-0.7); Absolute Lymphocyte Count 3.53 10^3/uL (1.2-3.4); Absolute Monocyte Count 0.68 10^3/uL (0.1-0.8); Absolute Neutrophil Count 4.84 10^3/uL (1.2-6.7); Basophils % 0.5 %; Eosinophils % 0.5 %; HGB 13.7 g/dL (11.2-15.7); Immature Grans % 0.1 %; Lymphocytes % 38.5 %; MCH 29.4 pg (27.0-33.0); MCHC 34.3 % (32.0-36.0); MCV 86 fL (80-95); Monocytes % 7.4 %; Platelet Count 363 10^3/uL (130-400); RBC 4.66 10^6/uL (3.93-5.22); RDW 12.1 % (11.7-14.6); WBC 9.16 10^3/uL (4.4-10.8)
[2023-08-10] MEDS: ACETAMINOPHEN 1,000 MG/100 ML BTL 400 MG IVPB (21:45)
[2023-08-10] MEDS: Ketorolac 15 MG/ML VIAL IVP (21:45)
[2023-08-10] MEDS: Ondansetron 4 MG/2 ML VIAL IVP (21:45)
[2023-08-10] MEDS: Lactated Ringers 1,000 ML 1000 ML IV (21:45)
[2023-08-10] MEDS: fentaNYL 100 MCG/2 ML VIAL 50 MCG IVP ×2 (21:57→22:26)
[2023-08-10] MEDS: Normal Saline - Diluent 50 ML VIAL IJ (21:59)
[2023-08-10 22:00] LABS: ALT 23 U/L (14-59); AST 17 U/L (15-37); Albumin 4.5 g/dL (3.4-5.0); Alkaline Phosphatase 75 U/L (46-116); Anion Gap 9.8 mmol/L (3-11); BUN 13 mg/dL (7-18); Bilirubin, Direct 0.1 mg/dL (0.0-0.2); Bilirubin, Total 0.5 mg/dL (0.2-1.0); CO2 26.2 mmol/L (21.0-32.0); CREATININE 0.9 mg/dL (0.55-1.02); Calcium 8.9 mg/dL (8.5-10.1); Chloride 102 mmol/L (98-107); Estimated GFR 90.98 (mL/min/1.73m2); Glucose 127 mg/dL (74-106); Lipase 55 U/L (16-77); Sodium 138 mmol/L (136-145); Total Protein 7.6 g/dL (6.4-8.2)
[2023-08-10] MEDS: Omnipaque 350 MG/ML 100 ML BTL IJ (22:00)
[2023-08-10 22:05] LABS: Troponin I < 50 ng/L (< or =60)
[2023-08-10] MEDS: Prochlorperazine 10 MG/2 ML VIAL 5 MG IVP (22:26)
[2023-08-10] MEDS: Normal Saline 10 ML VIAL (22:28)
--- NOTE | 2023-08-10 22:30 | RT.EKG_ITS ---
APPROVED REPORT Exam: Resting ECG Reason for Exam: baseline/screening Patient Location: E HR:79 bpm ECG Measurements Heart Rate 79 AXIS CA 147 P 63 QRSd 90 QRS 56 QT 390 T 55 QTc 449 Conclusion Sinus rhythm...normal P axis, V-rate 60- 99 Normal Electrocardiogram
[2023-08-10 22:34] LABS: Procalcitonin < 0.1 ng/mL
--- NOTE | 2023-08-10 23:23 | DI.VRAD_ITS ---
Addendum created by Wild Patel MD on 08/10/2023 11:36:40 PM EDT: Findings were discussed with Dr. Ansari at 08/10/2023 11:35 PM EDT. Initial report created on 08/10/2023 11:22:18 PM EDT: PROCEDURE INFORMATION: Exam: CT Abdomen And Pelvis With Contrast Exam date and time: 08/10/2023 10:01 PM Age: 27 years old Clinical indication: Other: Severe epigastric pain TECHNIQUE: Imaging protocol: Computed tomography of the abdomen and pelvis with contrast. Contrast material: OMNI 350; Contrast volume: 100 ml; Contrast route: INTRAVENOUS (IV); COMPARISON: CT ABDOMEN PELVIS W 03/26/2018 8:58 PM FINDINGS: Lungs: Lung bases are clear. Liver: Subcentimeter hypodensity in the lateral left hepatic lobe is too small to characterize but appears mildly complex and more prominent compared to prior. Liver is not enlarged. There is mild periportal edema. Gallbladder and bile ducts: Unremarkable. No calcified stones. No ductal dilation. Pancreas: Unremarkable. No ductal dilation. Spleen: Unremarkable. No splenomegaly. Adrenal glands: No adrenal mass. Kidneys and ureters: Symmetric renal enhancement without mass. No hydronephrosis. Ureters are normal in course and caliber. Stomach and bowel: Stomach mildly distended by ingested material without focal gastric mural thickening. No evidence of bowel obstruction. No definite focal bowel wall thickening allowing for degree of bowel distension. Appendix: Within normal limits. Intraperitoneal space: No free fluid in the abdomen or pelvis. No free air. Vasculature: No abdominal aortic aneurysm or evidence of dissection. Lymph nodes: No pathologically enlarged lymph nodes. Urinary bladder: Unremarkable as visualized. Reproductive: Unremarkable as visualized. Bones/joints: Unremarkable. No acute fracture. Soft tissues: No focal abnormality. IMPRESSION: 1. No evidence of bowel obstruction. 2. Mild periportal edema. Can be seen in association with aggressive fluid resuscitation however recommend correlation with LFTs to exclude acute hepatic pathology. 3. Subcentimeter hypodensity in the lateral left hepatic lobe is too small to characterize but appears mildly complex and more prominent compared to prior. Follow-up imaging per local radiologist recommendations. Dictated and Authenticated by: Wild Patel MD. Ordering:YUSRA Morales MD
== END 2023-08-11 00:08 | disposition home or self-care (01) ==
PROVIDERS: Emergency Medicine; Emergency Provider Physician Assistant; PCP Family Medicine
DX: R10.13 Epigastric pain (principal); R11.0 Nausea; F17.290 Nicotine dependence, other tobacco product, uncomplicated
CPT/HCPCS: 80048; 80076; 81025; 83690; 84145; 93005; 96374; 96375; 96376; 99285; 74177; 81003; 83605; 84484; 85025; 93010; 99284; J0131; J0780; J1885; J2405; J3010; J3490

== ENCOUNTER 2023-10-16 09:36 | Outpatient (CLI) | payer BC, SELFPAY ==
[2023-10-16 15:11] LABS: HCG Quant, Pregnancy < 1 mIU/mL (1-3)
== END 2023-10-16 09:37 | disposition home or self-care (01) ==
LOC: LBO 10-23 09:37
PROVIDERS: PCP Family Medicine; Visit Provider Advanced Practice Midwife
DX: N92.6 Irregular menstruation, unspecified (principal)
CPT/HCPCS: 36415; 84702

== ENCOUNTER 2024-09-28 07:20 | Outpatient (CLI) | payer BC, SELFPAY ==
[2024-09-28 07:37] VITALS: BP 126/75; PULSE 81; PULSE 83; PULSE 91; RESP 18; TEMP 36.7; O2SAT 100
[2024-09-28 08:14] LABS: HCG Quant, Pregnancy 7 mIU/mL (1-3)
== END 2024-09-28 07:45 ==
LOC: BCD 07:25 → OBS 07:34
PROVIDERS: PCP Family Medicine; Visit Provider Advanced Practice Midwife
DX: O20.0 Threatened abortion (principal)
CPT/HCPCS: 36415; 84702

== ENCOUNTER 2024-09-30 12:30 | Outpatient (CLI) | payer BC, SELFPAY ==
[2024-09-30 09:05] LABS: HCG Quant, Pregnancy 4 mIU/mL (1-3)
== END 2024-09-30 12:31 | disposition home or self-care (01) ==
LOC: LBO 12:31
PROVIDERS: PCP Family Medicine; Visit Provider Advanced Practice Midwife
DX: O20.0 Threatened abortion (principal)
CPT/HCPCS: 36415; 84702

== ENCOUNTER 2025-01-07 14:21 | Outpatient (REF) | payer BC, SELFPAY ==
[2025-01-09 12:31] LABS: Chlamydia Result Negative (Negative); GC Result Negative (Negative)
== END 2025-01-07 14:22 | disposition home or self-care (01) ==
LOC: LBN 14:21
PROVIDERS: PCP Family Medicine; Visit Provider Obstetrics & Gynecology
DX: N94.9 Unspecified condition associated with female genital organs and menstrual cycle (principal)
CPT/HCPCS: 87491; 87591; 87480; 87510; 87660

== ENCOUNTER 2025-03-04 16:21 | Outpatient (CLI) | payer BC, SELFPAY ==
[2025-03-04 16:41] LABS: HCG Quant, Pregnancy 174 mIU/mL (1.5-4.2)
== END 2025-03-04 16:22 | disposition home or self-care (01) ==
LOC: LBO 16:21
PROVIDERS: PCP Family Medicine; Visit Provider Nurse Practitioner Women's Health
DX: N92.6 Irregular menstruation, unspecified (principal)
CPT/HCPCS: 36415; 84702

== ENCOUNTER 2025-03-06 08:31 | Outpatient (CLI) | payer BC, SELFPAY ==
[2025-03-06 17:23] LABS: HCG Quant, Pregnancy 383 mIU/mL (1.5-4.2)
== END 2025-03-06 08:32 | disposition home or self-care (01) ==
LOC: LBO 08:31
PROVIDERS: PCP Family Medicine; Visit Provider Nurse Practitioner Women's Health
DX: N92.6 Irregular menstruation, unspecified (principal)
CPT/HCPCS: 36415; 84702

== ENCOUNTER 2025-03-17 00:46 | Outpatient (CLI) | payer BC, SELFPAY ==
[2025-03-17 11:47] LABS: HCG Quant, Pregnancy 522 mIU/mL (1.5-4.2)
== END 2025-03-17 00:47 | disposition home or self-care (01) ==
PROVIDERS: PCP Family Medicine; Visit Provider Advanced Practice Midwife
DX: Z34.91 Encounter for supervision of normal pregnancy, unspecified, first trimester (principal); O09.291 Supervision of pregnancy with other poor reproductive or obstetric history, first trimester
CPT/HCPCS: 36415; 84702

== ENCOUNTER 2025-03-19 02:39 | Outpatient (CLI) | payer BC, SELFPAY ==
[2025-03-19 11:59] LABS: HCG Quant, Pregnancy 656 mIU/mL (1.5-4.2)
== END 2025-03-19 02:40 | disposition home or self-care (01) ==
LOC: LBO 02:39
PROVIDERS: Advanced Practice Midwife; PCP Family Medicine; Visit Provider Family Medicine
DX: O09.291 Supervision of pregnancy with other poor reproductive or obstetric history, first trimester (principal); O20.0 Threatened abortion
CPT/HCPCS: 36415; 84702